=== PATIENT | female | born 1975 | race Caucasian/White ===

== ENCOUNTER → 2019-11-14 10:49 | Outpatient (BNVA) | payer MEDICARE, MEDICAID, SELFPAY | PROVIDERS: Family Provider Nurse Practitioner Family; PCP Registered Nurse; Visit Provider Nurse Practitioner Family | DX: B37.3 Candidiasis of vulva and vagina (principal); E11.9 Type 2 diabetes mellitus without complications; Z79.4 Long term (current) use of insulin; I10 Essential (primary) hypertension; Z72.0 Tobacco use | CPT/HCPCS: 83036 ==

== ENCOUNTER → 2020-02-26 14:07 | Outpatient (BNVA) | payer MEDICARE, MEDICAID, SELFPAY | PROVIDERS: Family Provider Nurse Practitioner Family; PCP Registered Nurse; Visit Provider Registered Nurse | DX: R30.0 Dysuria (principal); N76.0 Acute vaginitis; B35.3 Tinea pedis | CPT/HCPCS: 80053; 81000; 87077; 87086; 87186 ==

== ENCOUNTER → 2020-05-25 15:37 | Outpatient (BNVA) | payer MEDICARE, MEDICAID, SELFPAY | PROVIDERS: Family Provider Nurse Practitioner Family; PCP Registered Nurse; Visit Provider Registered Nurse | DX: E11.9 Type 2 diabetes mellitus without complications (principal); Z79.4 Long term (current) use of insulin; I10 Essential (primary) hypertension | CPT/HCPCS: 80053; 83036 ==

== ENCOUNTER → 2020-07-21 15:59 | Outpatient (BNVA) | payer MEDICARE, MEDICAID, SELFPAY | PROVIDERS: Family Provider Nurse Practitioner Family; PCP Registered Nurse; Visit Provider Registered Nurse | DX: B37.9 Candidiasis, unspecified (principal) | CPT/HCPCS: 81000 ==

== ENCOUNTER → 2020-12-03 10:13 | Outpatient (BNVA) | payer MEDICARE, MEDICAID, SELFPAY | PROVIDERS: Family Provider Nurse Practitioner Family; PCP Registered Nurse; Visit Provider Registered Nurse | DX: Z79.4 Long term (current) use of insulin; E78.5 Hyperlipidemia, unspecified; I10 Essential (primary) hypertension; E08.42 Diabetes mellitus due to underlying condition with diabetic polyneuropathy | CPT/HCPCS: 80053; 80061; 83036; 85025 ==

== ENCOUNTER → 2020-12-29 11:08 | Outpatient (BNVA) | payer MEDICARE, MEDICAID, SELFPAY | PROVIDERS: Family Provider Nurse Practitioner Family; PCP Registered Nurse; Visit Provider Registered Nurse | DX: J02.9 Acute pharyngitis, unspecified (principal) | CPT/HCPCS: 87880 ==

== ENCOUNTER → 2021-02-02 13:47 | Outpatient (BNVA) | payer MEDICARE, MEDICAID, SELFPAY | PROVIDERS: Family Provider Nurse Practitioner Family; PCP Registered Nurse; Visit Provider Registered Nurse | DX: N89.8 Other specified noninflammatory disorders of vagina (principal); B37.3 Candidiasis of vulva and vagina | CPT/HCPCS: 81000 ==

== ENCOUNTER → 2021-05-11 11:11 | Outpatient (BNVA) | payer MEDICARE, MEDICAID, SELFPAY | PROVIDERS: Family Provider Nurse Practitioner Family; PCP Registered Nurse; Visit Provider Registered Nurse | DX: Z79.4 Long term (current) use of insulin (principal); E08.42 Diabetes mellitus due to underlying condition with diabetic polyneuropathy; I10 Essential (primary) hypertension | CPT/HCPCS: 80053; 83036 ==

== ENCOUNTER 2022-07-17 21:07 | Emergency (ER) | payer MEDICAID, SELFPAY ==
[2022-07-17 21:09] VITALS: BP 120/81; PULSE 110; RESP 18; TEMP 36.8; O2SAT 99; BMI 30.2
--- NOTE | 2022-07-17 21:43 | CTR_ITS ---
PROCEDURE INFORMATION: Exam: CT Head Without Contrast Exam date and time: 07/17/2022 10:33 PM Age: 46 years old Clinical indication: Pain; Dizziness; Headache not specified; Additional info: Dizziness, headache TECHNIQUE: Imaging protocol: Computed tomography of the head without contrast. Radiation optimization: All CT scans at this facility use at least one of these dose optimization techniques: automated exposure control; mA and/or kV adjustment per patient size (includes targeted exams where dose is matched to clinical indication); or iterative reconstruction. COMPARISON: No relevant prior studies available. RADIATION DOSE METRICS: Total DLP (mGy-cm): 860.77 FINDINGS: Brain: Normal. No hemorrhage. Unremarkable white matter. No mass effect. Cerebral ventricles: No ventriculomegaly. Paranasal sinuses: Visualized sinuses are unremarkable. No fluid levels. Mastoid air cells: Visualized mastoid air cells are well aerated. Bones/joints: Unremarkable. No acute fracture. Soft tissues: Unremarkable. CT/CT head wo con* [id number] IMPRESSION: No acute intracranial abnormality.
[2022-07-17] MEDS: sodium chloride 0.9% 1,000 ML 999 ML IV (22:03)
--- NOTE | 2022-07-17 22:04 | ECG_ITS ---
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 Measurements Intervals [place] Rate: 117 P: 34 OR: 174 QRS: -87 QRSD: 92 T: 50 QT: 320 QTc: 448 Interpretive Statements SINUS TACHYCARDIA POSSIBLE ANTERIOR MYOCARDIAL INFARCTION , OF INDETERMINATE AGE [30 ms Q WAVE IN V3/V4, OR R < 0.2 mV IN V4] INFERIOR MYOCARDIAL INFARCTION , OF INDETERMINATE AGE [40+ ms Q WAVE AND/OR ST/T ABNORMALITY IN II/aVF] No previous ECG available for comparison Electronically Signed On 07-18-2022 18:11:01 CDT by Elkin Alford M.D. [id number]
--- NOTE | 2022-07-17 22:08 | W.ED.ALLEREA ---
HPI - Allergic Reaction General: Chief complaint: Allergic Reaction Stated complaint: Suger 305, dizzy, dry mouth Time Seen by Provider: 07/17/22 21:25 Source: patient History of Present Illness: HPI narrative: 46-year-old female who reports dizziness. She presents with significant dizziness, and headache, which she relates to increasing her dose of Lyrica couple of days ago. She has had essentially 3 doses, and has had increased dizziness with every dose. This is to the point that she is having trouble walking. She has no language problems, no focal weakness, no new numbness or paresthesias. She took 150 mg twice daily for 2 years without side effects, but this was increased to 300 mg twice daily. She also relates that she has dry mouth, that is significant. MD complaint: other Onset (ago): day(s) Associated symptoms: Reports dizziness; Deny abdominal pain, difficulty breathing, dysphagia, facial swelling, hoarseness, itching, lip swelling, tongue swelling or vomiting Severity: moderate Treatment prior to arrival: none Review of Systems Const: Denies: fever(s) Eyes: Denies: change in vision ENMT: Denies: throat pain or hoarseness Card: Denies: chest pain or palpitations Resp: Denies: dyspnea, productive cough or non-productive cough GI: Denies: abdominal pain, vomiting or dysphagia Neuro: Reports: headache(s), numbness in extremities (Chronic in hands from diabetic neuropathy) and dizziness; Denies: weakness in extremities All/Imm: Denies: tongue swelling or facial swelling PFSH ED PFSH: Medical History HTN (hypertension) Tobacco abuse disorder Type 2 diabetes mellitus without complication, with long-term current use of insulin Surgical History Hx of appendectomy Social History Smoking and tobacco status: never smoked Quit status (tobacco): considering quitting Physical Exam Const: COMMON NORMALS: no acute distress and alert GENERAL APPEARANCE: not ill appearing and not frail appearing HENMT: COMMON NORMALS: normocephalic, atraumatic and Normal external nose present HEAD & SCALP: normocephalic and atraumatic FACE & SINUS: normal facial exam and face symmetric NOSE: Normal external nose present Eye: COMMON NORMALS: Equal, round and reactive pupils present and EOMs intact bilaterally PUPIL: Yes Equal, round and reactive pupils present Neck/C-Spine: GENERAL: Yes trachea midline Resp: COMMON NORMALS: normal respiratory effort, No use of accessory muscles and clear to auscultation bilaterally AUSCULTATION: clear to auscultation bilaterally Cardio: COMMON NORMALS: regular rate and regular rhythm RATE: regular rate RHYTHM: regular rhythm GI: COMMON NORMALS: Normal to inspection, nondistended, normoactive bowel sounds present, Soft to palpation and non-tender PALPATION: Yes Soft to palpation Extremity: COMMON NORMALS: no pedal edema Neuro: LENI COMA SCALE: document GCS findings [place] coma scale eye opening: Spontaneous [place] coma scale verbal response: Orientated Leni coma scale motor response: Obey commands [place] coma scale total score: 15 COMMON NORMALS: CN's II-XII intact bilaterally SENSORIUM/ORIENTATION: Yes alert COORDINATION/BALANCE: [id number]-gw-[id number] test normal and eicn-iv-ozmj test normal SPEECH: speech normal SENSORY EXAM: Yes extremities (Grossly intact) MOTOR EXAM: Pronator motor function not present COORDINATION: isyhya-pk-knvj test normal and fcxz-gc-zgsf test normal Psych: COMMON NORMALS: mental status grossly normal Course Vital Signs: Vital signs: Vital Signs Temperature 98.3 F 07/17/22 21:09 Pulse Rate 88 07/17/22 23:51 Respiratory Rate 16 07/17/22 23:51 Blood Pressure 110/71 07/17/22 23:51 Pulse Oximetry 95 07/17/22 23:51 Oxygen Delivery Me thod 07/17/22 21:09 MDM - Allergic Reaction Medical Decision Making Head CT is negative. Blood sugar is down to 01/05/2003. She is prerenal azotemic, and is hydrated here. White blood cell count is 11.8. Hemoglobin is 12.6. Besides dehydration, no other cause for dizziness is noted. We will have her stop her pregabalin and resume her lower dose when her dizziness resolves. She is encouraged to drink plenty of fluids and watch her blood sugar. She has no signs of posterior circulation stroke on exam or CT. Lab Data : 07/17/22 22:03 07/17/22 22:[address] 07/17/22 21:43 IMPRESSION: No acute intracranial abnormality. Laboratory Results WBC 11.8 10^3/uL (4.0-10.0) H 07/17/22 22:03 RBC 6.64 10^6/uL (4.1-5.3) H 07/17/22 22:03 Hgb 12.6 g/dL (11.5-15.3) 07/17/22 22:03 Hct 41.6 % (37.0-47.0) 07/17/22 22: MCV 62.7 fl (81-99) L 07/17/22 22:03 MCH 19.0 pg (28.0-34.0) L 07/17/22: MCHC 30.3 g/dL (30.0-36.0) 07/17/22: RDW 16.1 % (12.1-15.1) H 07/17/22 22:03 Plt Count 320 10^3/cmm (130-400) 07/17/22 22: MPV 10.7 fL (7.4-10.4) H 07/17/22 22:03 Neut % (Auto) 55.0 % 07/17/22 22:03 Lymph % (Auto) 36.8 % 07/17/22 22:03 [place] % (Auto) 6.6 % 07/17/22 22: Eos % (Auto) 1.0 % 07/17/22 22: Baso % (Auto) 0.3 % 07/17/22 22: Neut # (Auto) 6.46 10^3/uL (1.8-7.7) 07/17/22: Lymph # (Auto) 4.3 10^3/uL (0.8-4.8) 07/17/22 22:03 [place] # (Auto) 0.8 10^3/uL (0.2-0.9) 07/17/22 22: Eos # (Auto) 0.1 10^3/uL (0.0-0.8) 07/17/22 22: Baso # (Auto) 0.0 10^3/uL (0.0-0.1) 07/17/22 22: Nucleated RBC % (auto) 0 % 07/17/22 22:03 Nucleated RBCs # 0.0 /100WBC 07/17/22 22:03 Sodium 133 mmol/L (136-145) L 07/17/22 22:03 Potassium 4.5 mmol/L (3.5-5.1) 07/17/22 22:03 Chloride 95 mmol/L (98-107) L 07/17/22 22:03 Carbon Dioxide 26 mmol/L (22-29) 07/17/22 22:03 Anion Gap 16.5 (5-19) 07/17/22 22:03 BUN 32 mg/dL (6-20) H 07/17/22 22:03 Creatinine 0.9 mg/dL (0.5-0.9) 07/17/22 22: GFR Calculation 66.8 mL/min (90-130) L 07/17/22 22:03 Glucose 203 mg/dL (65-115) H 07/17/22 22:03 Calculated Osmolality 289 mOsm/kg (285-295) 07/17/22 22:03 Lactate 2.0 mmol/L (0.5-2.2) 07/17/22 22: Calcium 10.0 mg/dL (8.5-10.5) 07/17/22 22:03 Total Bilirubin 0.2 mg/dL (0.15-1.2) 07/17/22 22:03 AST 10 U/L (0-32) 07/17/22 22:03 ALT 19 U/L (0-33) 07/17/22 22:03 Alkaline Phosphatase 127 U/L (35-105) H 07/17/22 22:03 Total Protein 7.2 g/dL (6.6-8.7) 07/17/22 22: Albumin 4.1 g/dL (3.5-5.2) 07/17/22 22: Globulin 3.1 g/dL (1.3-4.6) 07/17/22 22: Urine Color Yellow (Yellow) 07/17/22:45 Urine Appearance Clear (CLEAR) 07/17/22:45 Urine pH 6 (5-7) 07/17/22 22:45 Ur Specific [place] 1.020 (1.005-1.030) 07/17/22:45 Urine Protein Neg (Negative) 09/11/22 22:45 Urine Glucose (UA) 4+ (Normal) H 07/17/22 22:45 Urine Ketones Negative (Negative) 07/17/22 22:45 Urine Blood Neg (Negative) 07/17/22 22:45 Urine Nitrate Negative (Negative) 07/17/22 22:45 Urine Bilirubin Neg (Negative) 07/17/22 22:45 Urine Urobilinogen Neg mg/dL (Negative) 07/17/22 22:45 Ur Leukocyte Esterase Negative (Negative) 07/17/22 22:45 Discharge Plan Discharge Patient Disposition: Home Clinical Impression: Adverse drug effect, Acute dehydration Condition: Stable Prescriptions: No Action cephalexin 500 mg capsule 500 mg PO TID 7 Days Qty: 21 0RF lisinopril 20 mg tablet 20 mg PO DAILY Qty: 90 1RF pregabalin [Lyrica] 150 mg capsule 150 mg PO BID Qty: 60 2RF (DME) Advocate Test Strips Strip See Rx Instructions .Route Qty: 50 0RF Rx Instructions: TEST ONCE DAILY OneTouch Verio test strips Strip See Rx Instructions .ROUTE .COMPLEX Qty: 100 0RF Dose Instruction: USE 1 STRIP TO CHECK GLUCOSE ONCE DAILY Rx Instructions: USE 1 STRIP TO CHECK GLUCOSE ONCE DAILY metformin 1,000 mg tablet See Rx Instructions .ROUTE .COMPLEX Qty: 180 0RF Dose Instruction: Take 1 tablet by mouth twice daily for 90 days Rx Instructions: Take 1 tablet by mouth twice daily for 90 days Jardiance 25 mg tablet See Rx Instructions .ROUTE .COMPLEX Qty: 90 0RF Dose Instruction: TAKE 1 TABLET BY MOUTH EVERY MORNING Rx Instructions: TAKE 1 TABLET BY MOUTH EVERY MORNING Ozempic 0.25 mg or 0.5 mg(2 mg/1.5 mL) pen injector See Rx Instructions .ROUTE .COMPLEX Qty: 2 0RF Dose Instruction: INJECT 0.5 MG SUBCUTANEOUSLY ONCE A WEEK Rx Instructions: INJECT 0.5 MG SUBCUTANEOUSLY ONCE A WEEK Discharge Orders: Discharge ED (Routine); Ordered 07/17/22 Ordered By: Too Villasenor Referrals: Andrew Loomis MD [Physician] - 1-3 days Angelica Quinones FNP [Primary Care Provider] - Patient Instructions: Opioid Safety Activity Restrictions/Additional Instructions: Stop your pregabalin for 24 hours. Following this, if your dizziness is resolved, you may [id number] dose of 150 mg twice daily again. Drink plenty of water for the next 48 hours, as you were dehydrated. Return for fever greater than 100, vomiting liquids or medications, worsening dizziness, trouble with speech, weakness, other concerning symptoms. Coding Level of Care Code ED Speech Communication Professor for Keira Fwd Exam Comprehensive
[2022-07-17 22:19] LABS: Basophils % 0.3 %; Eosinophils # 0.1 10^3/uL (0.0-0.8); Hematocrit 41.6 % (37.0-47.0); Hemoglobin 12.6 g/dL (11.5-15.3); Lymphocytes # 4.3 10^3/uL (0.8-4.8); Lymphocytes % 36.8 %; Mean Corpuscular HGB Conc 30.3 g/dL (30.0-36.0); Mean Corpuscular Volume 62.7 fl (81-99); Mean Platelet Volume 10.7 fL (7.4-10.4); Monocytes # 0.8 10^3/uL (0.2-0.9); Monocytes % 6.6 %; Neutrophils # 6.46 10^3/uL (1.8-7.7); Nucleated Red Blood Cells % 0 %; Platelet Count 320 10^3/cmm (130-400); Red Blood Count 6.64 10^6/uL (4.1-5.3); Red Cell Distribution Width 16.1 % (12.1-15.1); White Blood Count 11.8 10^3/uL (4.0-10.0)
[2022-07-17 22:39] LABS: Alanine Aminotransferase 19 U/L (0-33); Albumin Level 4.1 g/dL (3.5-5.2); Alkaline Phosphatase 127 U/L (35-105); Anion Gap 16.5 (5-19); Aspartate Amino Transferase 10 U/L (0-32); Blood Urea Nitrogen 32 mg/dL (6-20); Carbon Dioxide 26 mmol/L (22-29); Chloride 95 mmol/L (98-107); Globulin 3.1 g/dL (1.3-4.6); Glomerular Filtration Rate 66.8 mL/min (90-130); Glucose 203 mg/dL (65-115); Osmolality Calculated 289 mOsm/kg (285-295); Potassium 4.5 mmol/L (3.5-5.1); Sodium 133 mmol/L (136-145); Total Bilirubin 0.2 mg/dL (0.15-1.2); Total Protein 7.2 g/dL (6.6-8.7)
[2022-07-17 22:56] LABS: Add Urine Microscopic? NO; Charge for UA Resulting for Rev
[2022-07-17 22:56] LABS: Slide Review Slide Review Perform
[2022-07-17 22:59] LABS: Urine Appearance Clear (CLEAR); Urine Color Yellow (Yellow)
[2022-07-17 23:00] LABS: Bilirubin Urine Neg (Negative); Blood Urine Neg (Negative); Glucose Urine UA 4+ (Normal); Ketones Urine Negative (Negative); Leukocyte Esterase Urine Negative (Negative); Nitrate Urine Negative (Negative); Protein Urine Neg (Negative); Urobilinogen Urine Neg (Negative); pH Urine 6 (5-7)
[2022-07-17 23:10] VITALS: BP 97/67; PULSE 102; RESP 17; O2SAT 94
[2022-07-17 23:51] VITALS: BP 110/71; PULSE 88; RESP 16; O2SAT 95
== END 2022-07-17 23:52 | disposition home or self-care (01) ==
PROVIDERS: Emergency Provider Emergency Medicine; PCP Registered Nurse
DX: E86.0 Dehydration (principal); T38.5X5A Adverse effect of other estrogens and progestogens, initial encounter
CPT/HCPCS: 70450; 80053; 81003; 83605; 85025; 93005; 96360; 99285; J7030

== ENCOUNTER 2022-12-04 01:24 | Emergency (ER) | payer MEDICARE, MEDICAID, SELFPAY ==
[2022-12-04 01:31] VITALS: BP 135/69; PULSE 86; RESP 16; TEMP 36.1; O2SAT 98; BMI 27.9
--- NOTE | 2022-12-04 01:49 | ED_ITS ---
HPI - Dental/Oral General: Chief complaint: Dental/Oral Stated complaint: toothache and right eye burning/itching Time Seen by Provider: 12/04/22 01:29 History of Present Illness: 47-year-old female comes in today with dental pain and irritation to the right eye. Patient denies getting anything in her eye but it feels like there is something. Patient also has poor dentition and increased pain. Patient has a history of diabetes and hypertension. Review of Systems Eyes: Reports: eye discomfort ENMT: Reports: dental pain PFSH ED PFSH: Medical History HTN (hypertension) Tobacco abuse disorder Type 2 diabetes mellitus without complication, with long-term current use of insulin Surgical History Hx of appendectomy Social History Smoking and tobacco status: never smoked Quit status (tobacco): considering quitting Physical Exam Const: COMMON NORMALS: alert HENMT: COMMON NORMALS: normocephalic HEAD & SCALP: normocephalic TEETH & GINGIVA: Yes poor dentition Eye: VISUAL ACUITY: Yes acuity normal EYELID: eyelid abnormality right upper eyelid erythema and swelling CONJUNCTIVA: Yes conjunctival abnormal positive right conjunctival injection Neck/C-Spine: COMMON NORMALS: full ROM Resp: COMMON NORMALS: normal respiratory effort Cardio: COMMON NORMALS: regular rate RATE: regular rate GI: COMMON NORMALS: Soft to palpation PALPATION: Yes Soft to palpation Back/Pelvis: COMMON NORMALS: thoracic and lumbar spine normal to inspection Extremity: COMMON NORMALS: no pedal edema Neuro: SENSORIUM/ORIENTATION: Yes alert Skin: COMMON NORMALS: turgor normal GENERAL SKIN EXAM: turgor normal Course Vital Signs: Vital signs: Vital Signs Temperature 97.0 F L 12/04/22 01:31 Pulse Rate 86 12/04/22 01:31 Respiratory Rate 16 12/04/22 01:31 Blood Pressure 135/69 12/04/22 01:31 Pulse Oximetry 98 12/04/22 01:31 Oxygen Delivery Me thod 12/04/22 01:31 MDM - Dental/Oral Medical Decision Making 47-year-old female comes in today for complaints of dental pain and eye irritation. On exam patient has some erythema to the right upper eyelid, no noticeable foreign body or abnormality to the conjunctiva. Respirations are even lungs are clear to auscultation. Abdomen soft nontender. No edema is noted in the extremity. Patient has very poor dentition with multiple caries and dental decay. Also significant erosion of the gingiva is noted. Differential diagnosis includes foreign body to the eye, conjunctivitis, corneal abrasion. Differential diagnosis of dental complaint includes dental abscess, dental caries, tooth ache. 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 Patient to follow-up with dentist for definitive care of of teeth. Patient reports understanding and agreed to plan Discharge Plan Discharge Patient Disposition: Home Clinical Impression: Toothache Corneal abrasion Qualifiers: Encounter type: initial encounter Laterality: right Qualified Code(s): S05.01XA - Injury of conjunctiva and corneal abrasion without foreign body, right eye, initial encounter Condition: Stable Prescriptions: New clindamycin HCl 300 mg capsule 300 mg PO BID 7 Days Qty: 14 0RF Discontinued cephalexin 500 mg capsule 500 mg PO TID 7 Days Qty: 21 0RF No Action lisinopril 20 mg tablet 20 mg PO DAILY Qty: 90 1RF pregabalin [Lyrica] 150 mg capsule 150 mg PO BID Qty: 60 2RF (DME) Advocate Test Strips Strip See Rx Instructions .Route Qty: 50 0RF Rx Instructions: TEST ONCE DAILY OneTouch Verio test strips Strip See Rx Instructions .ROUTE .COMPLEX Qty: 100 0RF Dose Instruction: USE 1 STRIP TO CHECK GLUCOSE ONCE DAILY Rx Instructions: USE 1 STRIP TO CHECK GLUCOSE ONCE DAILY metformin 1,000 mg tablet See Rx Instructions .ROUTE .COMPLEX Qty: 180 0RF Dose Instruction: Take 1 tablet by mouth twice daily for 90 days Rx Instructions: Take 1 tablet by mouth twice daily for 90 days Jardiance 25 mg tablet See Rx Instructions .ROUTE .COMPLEX Qty: 90 0RF Dose Instruction: TAKE 1 TABLET BY MOUTH EVERY MORNING Rx Instructions: TAKE 1 TABLET BY MOUTH EVERY MORNING Ozempic 0.25 mg or 0.5 mg(2 mg/1.5 mL) pen injector See Rx Instructions .ROUTE .COMPLEX Qty: 2 0RF Dose Instruction: INJECT 0.5 MG SUBCUTANEOUSLY ONCE A WEEK Rx Instructions: INJECT 0.5 MG SUBCUTANEOUSLY ONCE A WEEK Discharge Orders: Discharge ED (Routine); Ordered 12/04/22 Ordered By: Federico Burroughs Referrals: Angelica Quinones FNP [Primary Care Provider] - Discharge Diet: Usual diet Discharge Activity: Increase activity as tolerated Patient Instructions: Toothache (ED) Activity Restrictions/Additional Instructions: Drink plenty of water and fluids. Take antibiotic as directed. Use antibiotic eyedrop 2 drops to the affected eye 4 times a day while awake for the next 7 days. Follow-up with dentist for definitive care. Use acetaminophen or ibuprofen for pain. Return to ED for worsening symptoms or new concerns. Have the eye rechecked in 3 days at primary care office or eye out of school hours care worker. Coding Level of Care Code ED Street Superintendent for Keira Golden
[2022-12-04] MEDS: clindamycin 150 mg Capsule 300 MG PO (01:53)
[2022-12-04] MEDS: HYDROcodone-acetaminophen 5-325 mg Tablet 1 TAB PO (01:53)
[2022-12-04] MEDS: neomycin-poly-dex Op 5 mL Btl 2 DROP EYE-RIGHT (02:04)
== END 2022-12-04 02:08 | disposition home or self-care (01) ==
PROVIDERS: Emergency Provider Nurse Practitioner Family; PCP Registered Nurse
DX: K08.89 Other specified disorders of teeth and supporting structures (principal); S05.01XA Injury of conjunctiva and corneal abrasion without foreign body, right eye, initial encounter; Z79.84 Long term (current) use of oral hypoglycemic drugs; I10 Essential (primary) hypertension; E11.9 Type 2 diabetes mellitus without complications; X58.XXXA Exposure to other specified factors, initial encounter
CPT/HCPCS: 99283

== ENCOUNTER 2022-12-12 18:09 | Emergency (ER) | payer MEDICARE, MEDICAID, SELFPAY ==
[2022-12-12] VITALS (9 sets, daily range): BP systolic 89–104; BP diastolic 57–75; PULSE 108; RESP 16; TEMP 36.6; O2SAT 95–98; BMI 29.2
[2022-12-12 18:25] LABS: Glucose Point of Care 163 mg/dL (70-110)
--- NOTE | 2022-12-12 18:45 | W.ED.GENADLT ---
HPI - General Adult General: Chief complaint: General Medical Stated complaint: High blood sugar Time Seen by Provider: 12/12/22 18:38 Source: patient Mode of arrival: ambulatory Limitations: no limitations History of Present Illness: 47-year-old female with a history of diabetes and states that she has been feeling fatigued this week her blood sugars been running high states has been running over 300 was 314 today and she became concerned blood sugar here is 163 she had no vomiting no diarrhea denies any worsening proving factors. Associated symptoms: Deny chest pain, dyspnea, headache(s), nausea, rash or vomiting Review of Systems Const: Denies: fever(s), chills, body aches or change in appetite Eyes: Denies: blurry vision or eye discomfort ENMT: Denies: throat pain or dental pain Card: Denies: chest pain Resp: Denies: dyspnea GI: Denies: abdominal pain, nausea, vomiting or diarrhea : Denies: dysuria Musc: Denies: neck pain or back pain Skin/Breast: Denies: rash Neuro: Denies: headache(s) Psych: Denies: depression [place]/Lymph: Denies: easy bruising All/Imm: Denies: urticaria PFSH ED PFSH: Medical History HTN (hypertension) Tobacco abuse disorder Type 2 diabetes mellitus without complication, with long-term current use of insulin Surgical History Hx of appendectomy Social History Smoking and tobacco status: never smoked Quit status (tobacco): considering quitting Physical Exam Const: COMMON NORMALS: no acute distress, patient oriented x3 and healthy appearing HENMT: COMMON NORMALS: normocephalic and atraumatic HEAD & SCALP: normocephalic and atraumatic Eye: COMMON NORMALS: Equal, round and reactive pupils present and EOMs intact bilaterally PUPIL: Yes Equal, round and reactive pupils present Neck/C-Spine: COMMON NORMALS: full ROM and supple Chest: COMMONS NORMALS: normal inspection of the chest and normal palpation of entire chest wall Resp: COMMON NORMALS: normal respiratory effort, No retractions, No use of accessory muscles and clear to auscultation bilaterally AUSCULTATION: clear to auscultation bilaterally Cardio: COMMON NORMALS: regular rate, regular rhythm and No murmurs present (Cardio) RATE: regular rate RHYTHM: regular rhythm GI: COMMON NORMALS: Normal to inspection, nondistended, normoactive bowel sounds present, Soft to palpation, non-tender and no masses PALPATION: Yes Soft to palpation Extremity: COMMON NORMALS: normal to inspection and full ROM Neuro: COMMON NORMALS: patient oriented x3, moves all extremities and no focal motor deficits Psych: COMMON NORMALS: mental status grossly normal, Normal thought process present and cooperative THOUGHT PROCESS: Normal thought process present Skin: COMMON NORMALS: no rashes or lesions noted and no wounds GENERAL SKIN EXAM: no rashes or lesions noted Course Vital Signs: Vital signs: Vital Signs Temperature 97.9 F 12/12/22 18:18 Pulse Rate 108 H 12/12/22 20:11 Respiratory Rate 16 12/12/22 18:18 Blood Pressure 104/75 12/12/22 20:11 Pulse Oximetry 98 12/12/22 20:11 Oxygen Delivery Me thod 12/12/22 18:18 MDM - General Adult Medical Decision Making Patient presents here with high glucose at home her blood sugar here is improved her blood work is normal her blood pressure at 89/58 chart is incorrect its currently at 102 she is stable for discharge she is to follow-up with PCP and return if worsening. Lab Data 12/12/22 18:55 12/12/22 18:55 Laboratory Results WBC 11.6 10^3/uL (4.0-10.0) H 12/12/22 18:55 RBC 6.42 10^6/uL (4.1-5.3) H 12/12/22 18:55 Hgb 12.2 g/dL (11.5-15.3) 12/12/22 18:55 Hct 40.3 % (37.0-47.0) 12/12/22 18:55 MCV 62.8 fl (81-99) L 12/12/22 18:55 MCH 19.0 pg (28.0-34.0) L 12/12/22 18:55 MCHC 30.3 g/dL (30.0-36.0) 12/12/22 18:55 RDW 18.6 % (12.1-15.1) H 12/12/22 18:55 Plt Count 418 10^3/cmm (130-400) H 12/12/22 18:55 MPV 10.8 fL (7.4-10.4) H 12/12/22 18:55 Neut % (Auto) 65.4 % 12/12/22 18:55 Lymph % (Auto) 27.8 % 12/12/22 18:55 [place] % (Auto) 5.6 % 12/12/22 18:55 Eos % (Auto) 0.6 % 12/12/22 18:55 Baso % (Auto) 0.3 % 12/12/22 18:55 Neut # (Auto) 7.57 10^3/uL (1.8-7.7) 12/12/22 18:55 Lymph # (Auto) 3.2 10^3/uL (0.8-4.8) 12/12/22 18:55 [place] # (Auto) 0.7 10^3/uL (0.2-0.9) 12/12/22 18:55 Eos # (Auto) 0.1 10^3/uL (0.0-0.8) 12/12/22 18:55 Baso # (Auto) 0.0 10^3/uL (0.0-0.1) 12/12/22 18:55 Nucleated RBC % (auto) 0.2 % 12/12/22 18:55 Nucleated RBCs # 0.0 /100WBC 12/12/22 18:55 Sodium 134 mmol/L (136-145) L 12/12/22 18:55 Potassium 3.9 mmol/L (3.5-5.1) 12/12/22 18:55 Chloride 96 mmol/L (98-107) L 12/12/22 18:55 Carbon Dioxide 24 mmol/L (22-29) 12/12/22 18:55 Anion Gap 17.9 (5-19) 12/12/22 18:55 BUN 31 mg/dL (6-20) H 12/12/22 18:55 Creatinine 1.6 mg/dL (0.5-0.9) H 12/12/22 18:55 GFR Calculation 34.3 mL/min (90-130) L 12/12/22 18:55 Glucose 165 mg/dL (65-115) H 12/12/22 18:55 POC Glucose 163 mg/dL (70-110) H 12/12/22 18:22 Calculated Osmolality 288 mOsm/kg (285-295) 12/12/22 18:55 Calcium 9.9 mg/dL (8.5-10.5) 12/12/22 18:55 Total Bilirubin 0.4 mg/dL (0.15-1.2) 12/12/22 18:55 AST 10 U/L (0-32) 12/12/22 18:55 ALT 17 U/L (0-33) 12/12/22 18:55 Alkaline Phosphatase 88 U/L (35-105) 12/12/22 18:55 Total Protein 7.4 g/dL (6.6-8.7) 12/12/22 18:55 Albumin 4.4 g/dL (3.5-5.2) 12/12/22 18:55 Globulin 3.0 g/dL (1.3-4.6) 12/12/22 18:55 Lipase 59 U/L (13-60) 12/12/22 18:55 Discharge Plan Discharge Patient Disposition: Home Clinical Impression: Hyperglycemia Condition: Stable Prescriptions: No Action lisinopril 20 mg tablet 20 mg PO DAILY Qty: 90 1RF pregabalin [Lyrica] 150 mg capsule 150 mg PO BID Qty: 60 2RF (DME) [facility]ocate Test Strips Strip See Rx Instructions .Route Qty: 50 0RF Rx Instructions: TEST ONCE DAILY OneTouch Verio test strips Strip See Rx Instructions .ROUTE .COMPLEX Qty: 100 0RF Dose Instruction: USE 1 STRIP TO CHECK GLUCOSE ONCE DAILY Rx Instructions: USE 1 STRIP TO CHECK GLUCOSE ONCE DAILY metformin 1,000 mg tablet See Rx Instructions .ROUTE .COMPLEX Qty: 180 0RF Dose Instruction: Take 1 tablet by mouth twice daily for 90 days Rx Instructions: Take 1 tablet by mouth twice daily for 90 days Jardiance 25 mg tablet See Rx Instructions .ROUTE .COMPLEX Qty: 90 0RF Dose Instruction: TAKE 1 TABLET BY MOUTH EVERY MORNING Rx Instructions: TAKE 1 TABLET BY MOUTH EVERY MORNING Ozempic 0.25 mg or 0.5 mg(2 mg/1.5 mL) pen injector See Rx Instructions .ROUTE .COMPLEX Qty: 2 0RF Dose Instruction: INJECT 0.5 MG SUBCUTANEOUSLY ONCE A WEEK Rx Instructions: INJECT 0.5 MG SUBCUTANEOUSLY ONCE A WEEK Discharge Orders: Discharge ED (Routine); Ordered 12/12/22 Ordered By: Nita Shelby Referrals: Andrew Loomis MD [Primary Care Provider] - Discharge Diet: Advance as tolerated Discharge Activity: Resume usual activity Patient Instructions: Diabetic Hyperglycemia (ED) Coding Level of Care Code ED Laborer [employer] Assembly for Keira Golden
[2022-12-12] MEDS: sodium chloride 0.9% 1,000 ML 999 ML IV (19:03)
[2022-12-12 19:14] LABS: Basophils % 0.3 %; Eosinophils # 0.1 10^3/uL (0.0-0.8); Eosinophils % 0.6 %; Hematocrit 40.3 % (37.0-47.0); Hemoglobin 12.2 g/dL (11.5-15.3); Lymphocytes # 3.2 10^3/uL (0.8-4.8); Lymphocytes % 27.8 %; Mean Corpuscular HGB Conc 30.3 g/dL (30.0-36.0); Mean Corpuscular Volume 62.8 fl (81-99); Mean Platelet Volume 10.8 fL (7.4-10.4); Monocytes # 0.7 10^3/uL (0.2-0.9); Monocytes % 5.6 %; Neutrophils # 7.57 10^3/uL (1.8-7.7); Neutrophils % 65.4 %; Nucleated Red Blood Cells % 0.2 %; Platelet Count 418 10^3/cmm (130-400); Red Blood Count 6.42 10^6/uL (4.1-5.3); Red Cell Distribution Width 18.6 % (12.1-15.1); White Blood Count 11.6 10^3/uL (4.0-10.0)
[2022-12-12 19:31] LABS: Alanine Aminotransferase 17 U/L (0-33); Albumin Level 4.4 g/dL (3.5-5.2); Alkaline Phosphatase 88 U/L (35-105); Anion Gap 17.9 (5-19); Aspartate Amino Transferase 10 U/L (0-32); Blood Urea Nitrogen 31 mg/dL (6-20); Calcium 9.9 mg/dL (8.5-10.5); Carbon Dioxide 24 mmol/L (22-29); Chloride 96 mmol/L (98-107); Glomerular Filtration Rate 34.3 mL/min (90-130); Glucose 165 mg/dL (65-115); Lipase 59 U/L (13-60); Osmolality Calculated 288 mOsm/kg (285-295); Potassium 3.9 mmol/L (3.5-5.1); Sodium 134 mmol/L (136-145); Total Bilirubin 0.4 mg/dL (0.15-1.2); Total Protein 7.4 g/dL (6.6-8.7)
== END 2022-12-12 20:13 | disposition home or self-care (01) ==
PROVIDERS: Emergency Provider Emergency Medicine; PCP Family Medicine
DX: E11.65 Type 2 diabetes mellitus with hyperglycemia (principal); Z79.84 Long term (current) use of oral hypoglycemic drugs; I10 Essential (primary) hypertension
CPT/HCPCS: 36416; 80053; 82962; 83690; 85025; 96360; 99284; J7030

== ENCOUNTER 2023-05-27 19:53 | Emergency (ER) | payer MEDICARE, MEDICAID, SELFPAY ==
[2023-05-27 20:05] VITALS: BP 123/77; PULSE 89; RESP 16; TEMP 36.7; O2SAT 98; BMI 26.4
--- NOTE | 2023-05-27 20:11 | ED_ITS ---
HPI - Skin/Abscess/Foreign Bdy General: Chief complaint: Skin/Abscess/Foreign Body Stated complaint: abd pain Time Seen by Provider: 05/27/23 20:04 Source: patient Mode of arrival: ambulatory Limitations: no limitations History of Present Illness: 47-year-old female states that she noticed some redness to her umbilicus just prior to arrival she denies it being pruritic denies any pain denies any fever denies any drainage Associated symptoms: Deny chills, fever(s), nausea or vomiting Review of Systems Const: Denies: fever(s) or chills ENMT: Denies: throat pain Card: Denies: chest pain Resp: Denies: dyspnea GI: Denies: abdominal pain, nausea or vomiting Musc: Denies: neck pain or back pain Skin/Breast: Reports: rash Neuro: Denies: headache(s) PFSH ED PFSH: Medical History HTN (hypertension) Tobacco abuse disorder Type 2 diabetes mellitus without complication, with long-term current use of insulin Surgical History Hx of appendectomy Social History Smoking and tobacco status: never smoked Quit status (tobacco): considering quitting Physical Exam Const: COMMON NORMALS: no acute distress and patient oriented x3 HENMT: COMMON NORMALS: normocephalic and atraumatic HEAD & SCALP: normocephalic and atraumatic Eye: COMMON NORMALS: conjunctivae normal CONJUNCTIVA: Yes conjunctivae normal Chest: COMMONS NORMALS: normal inspection of the chest Resp: COMMON NORMALS: normal respiratory effort GI: OTHER: Tenia corporis to umbilicus no tenderness no hernia Extremity: COMMON NORMALS: normal to inspection Neuro: COMMON NORMALS: patient oriented x3 Psych: COMMON NORMALS: mental status grossly normal Course Vital Signs: Vital signs: Vital Signs Temperature 98.0 F 05/27/23 20:05 Pulse Rate 89 05/27/23 20:05 Respiratory Rate 16 05/27/23 20:05 Blood Pressure 123/77 05/27/23 20:05 Pulse Oximetry 98 05/27/23 20:05 Oxygen Delivery Me thod Room Air, Nasal C annula 05/27/23 20:05 MDM - Skin/Abscess/Foreign Bdy Medicial Decision Making Patient presents for tinea corporis to her umbilicus we will prescribe her clotrimazole she is well-appearing here she is stable for discharge Medical Records I reviewed the patient's medical records. Discharge Plan Discharge Patient Disposition: Home Clinical Impression: Tinea corporis Condition: Stable Prescriptions: New clotrimazole 1 % ointment 1 applic topical BID 14 Days Qty: 56.7 0RF No Action hydrocodone-acetaminophen 5-325 mg tablet 1 tab PO Q6H PRN (Reason: pain) 7 Days Qty: 28 0RF lisinopril 20 mg tablet 20 mg PO DAILY Qty: 90 1RF pregabalin [Lyrica] 150 mg capsule 150 mg PO BID Qty: 60 2RF (DME) Advocate Test Strips Strip See Rx Instructions .Route Qty: 50 0RF Rx Instructions: TEST ONCE DAILY OneTouch Verio test strips Strip See Rx Instructions .ROUTE .COMPLEX Qty: 100 0RF Dose Instruction: USE 1 STRIP TO CHECK GLUCOSE ONCE DAILY Rx Instructions: USE 1 STRIP TO CHECK GLUCOSE ONCE DAILY metformin 1,000 mg tablet See Rx Instructions .ROUTE .COMPLEX Qty: 180 0RF Dose Instruction: Take 1 tablet by mouth twice daily for 90 days Rx Instructions: Take 1 tablet by mouth twice daily for 90 days Jardiance 25 mg tablet See Rx Instructions .ROUTE .COMPLEX Qty: 90 0RF Dose Instruction: TAKE 1 TABLET BY MOUTH EVERY MORNING Rx Instructions: TAKE 1 TABLET BY MOUTH EVERY MORNING Ozempic 0.25 mg or 0.5 mg(2 mg/1.5 mL) pen injector See Rx Instructions .ROUTE .COMPLEX Qty: 2 0RF Dose Instruction: INJECT 0.5 MG SUBCUTANEOUSLY ONCE A WEEK Rx Instructions: INJECT 0.5 MG SUBCUTANEOUSLY ONCE A WEEK Discharge Orders: Discharge ED (Routine); Ordered 05/27/23 Ordered By: Nita Shelby Referrals: Andrew Loomis MD [Primary Care Provider] - 1-3 days Discharge Diet: Advance as tolerated Discharge Activity: Resume usual activity Patient Instructions: Tinea Corporis (ED) Coding Level of Care Code ED Dietary Director for Keira Golden
== END 2023-05-27 20:30 | disposition home or self-care (01) ==
PROVIDERS: Emergency Provider Emergency Medicine; PCP Family Medicine
DX: B35.4 Tinea corporis (principal); Z79.84 Long term (current) use of oral hypoglycemic drugs; I10 Essential (primary) hypertension; E11.9 Type 2 diabetes mellitus without complications
CPT/HCPCS: 99283

== ENCOUNTER 2024-08-12 19:57 | Emergency (ER) | payer MEDICAID, SELFPAY ==
[2024-08-12] VITALS (7 sets, daily range): BP systolic 96–128; BP diastolic 66–88; PULSE 101–145; RESP 14–18; TEMP 37.2; O2SAT 92–97; BMI 26.6
[2024-08-12 20:35] LABS: Basophils % 0.3 %; Eosinophils % 0.1 %; Hematocrit 44.6 % (36-47); Lymphocytes # 1.1 10^3/uL (0.8-4.8); Lymphocytes % 12.4 %; Mean Corpuscular Hemoglobin 18.6 pg (27-33); Mean Corpuscular Volume 61.9 fl (85-98); Mean Platelet Volume 9.9 fL (7.4-10.4); Monocytes # 0.4 10^3/uL (0.2-0.9); Neutrophils # 7.23 10^3/uL (1.8-7.7); Neutrophils % 81.9 %; Nucleated Red Blood Cells % 0 %; Platelet Count 308 10^3/cmm (157-399); Red Cell Distribution Width 17.8 % (12.1-15.1); White Blood Count 8.84 10^3/uL (3.29-11.43)
[2024-08-12 20:52] LABS: Slide Review Slide Review Perform
[2024-08-12 20:55] LABS: Lactic Sepsis W/Reflex 2.6 mmol/L (0.5-2.2)
[2024-08-12 20:56] LABS: Alanine Aminotransferase 40 U/L (0-33); Albumin Level 4.3 g/dL (3.5-5.2); Alkaline Phosphatase 122 U/L (35-105); Anion Gap 15.6 (5-19); Aspartate Amino Transferase 18 U/L (0-32); Blood Urea Nitrogen 15 mg/dL (6-20); C Reactive Protein 12.7 mg/L (0.0-4.9); Calcium 9.8 mg/dL (8.5-10.5); Carbon Dioxide 22 mmol/L (22-29); Chloride 98 mmol/L (98-107); Creatinine Clr Calc Pharmacy 92.5025; Globulin 3.5 g/dL (1.3-4.6); Glomerular Filtration Rate 88.6 mL/min (90-130); Glucose 235 mg/dL (65-115); Osmolality Calculated 280 mOsm/kg (285-295); Potassium 4.6 mmol/L (3.5-5.1); Sodium 131 mmol/L (136-145); Total Bilirubin 0.6 mg/dL (0.15-1.2); Total Protein 7.8 g/dL (6.6-8.7)
--- NOTE | 2024-08-12 21:14 | ECG_ITS ---
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 Measurements Intervals Felicity Rate: 129 P: 56 ME: 158 QRS: 252 QRSD: 80 T: 66 QT: 308 QTc: 453 Interpretive Statements SINUS TACHYCARDIA PATTERN CONSISTENT WITH PULMONARY DISEASE RIGHT VENTRICULAR HYPERTROPHY [SOME/ALL OF: PROMINENT R IN V1, LATE TRANSITION, RAD, YUAN, SSS] Compared to ECG 07/17/2022 22:04:41 Atrial abnormality now present Right ventricular hypertrophy now present Myocardial infarct finding no longer present Electronically Signed On 08-13-2024 01:25:58 CDT by Nikita Torres M.D. [id number]
--- NOTE | 2024-08-12 21:30 | ED_ITS ---
HPI - Abdominal Pain 2 General: Chief Complaint: Abdominal Pain Stated Complaint: Aches,Pain Time Seen by Provider: 08/12/24 21:09 History of Present Illness: Patient presents to the ER with a she has not not feeling well and been throwing up for the last couple days. She been sleeping a lot patient is a diabetic who takes pills not insulin. States her blood sugar has been up to 300. She says she has not been able to poop for about 2 days and has not produced a whole lot of urine however she is not able to keep anything down to be on the verge to be getting dehydrated. Related Data Previous Rx's Medication Instructions Recorded lisinopril 20 mg tablet 20 mg PO DAILY #90 tabs 06/14/21 pregabalin 150 mg capsule (Lyrica) 150 mg PO BID #60 caps 06/14/21 blood sugar diagnostic (Advocate #50 ea 06/21/21 Test Strips) blood sugar diagnostic (OneTouch See Rx Instructions .Route 08/04/21 Verio test strips) .COMPLEX #100 ea metformin 1,000 mg tablet See Rx Instructions .Route 09/23/21 .COMPLEX #180 tabs empagliflozin 25 mg tablet See Rx Instructions .Route 11/12/21 (Jardiance) .COMPLEX #90 tabs semaglutide 0.25 mg or 0.5 mg (2 See Rx Instructions .Route 11/12/21 mg/1.5 mL) subcutaneous pen .COMPLEX #2 mL injector (Ozempic) hydrocodone 5 mg-acetaminophen 325 1 tab PO Q6H PRN pain 7 days #28 02/22/ mg tablet tabs ondansetron HCl 4 mg tablet 4 mg PO Q8H PRN nausea and 08/13/24 vomiting #14 tabs Allergies Allergy/AdvReac Type Severity Reaction Status Date / Time aspirin Allergy Mild unknown Verified 08/12/24 20:05 penicillin V Allergy Mild unknown Verified 08/12/24 20:05 Review of Systems 2 General: Reports: 10 or more systems reviewed and unremarkable except in HPI and below PFSH ED 2 PFSH: Medical History Tobacco abuse disorder HTN (hypertension) Type 2 diabetes mellitus without complication, with long-term current use of insulin Surgical History Hx of appendectomy Social History Smoking and tobacco/nicotine status: never used tobacco/nicotine Quit status (tobacco/nicotine): considering quitting Physical Exam 2 Const: COMMON NORMALS: no acute distress, average body habitus, patient oriented x3, no limitations, healthy appearing, alert and well nourished HENMT: COMMON NORMALS: normocephalic, atraumatic, hearing grossly normal bilaterally, external ears normal, Normal external nose present and moist oral mucous membranes HEAD & SCALP: normocephalic and atraumatic NOSE: Normal external nose present EXTERNAL EAR: Yes external ears normal Eye: COMMON NORMALS: Equal, round and reactive pupils present, EOMs intact bilaterally, conjunctivae normal and no scleral icterus CONJUNCTIVA: Yes conjunctivae normal PUPIL: Yes Equal, round and reactive pupils present Neck/C-Spine: COMMON NORMALS: full ROM, no lymphadenopathy, supple, no meningeal signs, no JVD and Thyroid normal THYROID: Thyroid normal Chest: COMMONS NORMALS: normal inspection of the chest and normal palpation of entire chest wall Resp: COMMON NORMALS: normal respiratory effort, No retractions, No use of accessory muscles and clear to auscultation bilaterally AUSCULTATION: clear to auscultation bilaterally Cardio: COMMON NORMALS: no JVD, regular rhythm, S1 normal heart sound present, S2 normal heart sound present, No gallops present (Cardio), No clicks present (Cardio), No murmurs present (Cardio) and No rub (Cardio); negative for regular rate (Tachycardic) RATE: abnormal rate (Tachycardic) RHYTHM: regular rhythm HEART SOUNDS: S1 normal heart sound present and S2 normal heart sound present GI: COMMON NORMALS: Normal to inspection, nondistended, normoactive bowel sounds present, Soft to palpation, No hepatosplenomegaly present and no masses; negative for non-tender (Tender to palpate right upper quadrant) PALPATION: Y es Soft to palpation and Yes No hepatosplenomegaly present Neuro: COMMON NORMALS: patient oriented x3 SENSORIUM/ORIENTATION: Yes alert MENINGEAL SIGNS: Yes no meningeal signs Course 2 Vital Signs: Vital signs: Vital Signs Temperature 98.9 F 08/12/24 20:00 Pulse Rate 105 H 10/08/24 00:25 Respiratory Rate 16 08/13/24 00:25 Blood Pressure 107/89 08/13/24 00:25 Pulse Oximetry 95 08/13/24 00:25 Oxygen Delivery Me thod Room Air 08/12/24 23:30 MDM - Abdominal Pain Medical Decision Making Homework revealed normal white count, hemoglobin hematocrit and platelet count, metabolic panel showed sodium 131, ALT 40 alk phos 122, troponin of 13 and 14.71 for delta 1.71 CRP of 12.7, CT scan abdomen pelvis showed prominent fluid in the stomach correlate for gastroenteritis, hepatic steatosis, patient was given fluid bolus and says she was feeling much better. Patient will be discharged home to follow-up with her PCP. Differential Diagnosis Likely abdominal pain Medical Records I reviewed the patient's medical records. Lab Data I reviewed the patient's lab results. 08/12/24 20:28 08/12/24 20:28 Labs/Radiology: Radiology Impressions Abdomen/Pelvis CT 08/12/24 23:03 IMPRESSION: 1. Prominent fluid in the stomach and small bowel, please correlate for a gastroenteritis. 2. Hepatic steatosis. 3. Right adrenal 27 mm indeterminate nodule along with a left adrenal 20 mm indeterminate nodule, dedicated nonemergent adrenal imaging could further characterize this. 4. Small hiatal hernia. Laboratory Results WBC 8.84 10^3/uL (3.29-11.43) 08/12/24 20: RBC 7.20 10^6/uL (3.85-5.65) H 08/12/24 20: Hgb 13.40 g/dL (11.27-16.99) 08/12/24 20: Hct 44.6 % (36-47) 08/12/24 20: MCV 61.9 fl (85-98) L 08/12/24 20: MCH 18.6 pg (27-33) L 08/12/24 20: MCHC 30.0 g/dL (30-55) 08/12/24 20: RDW 17.8 % (12.1-15.1) H 08/12/24 20: Plt Count 308 10^3/cmm (157-399) 08/12/24 20: MPV 9.9 fL (7.4-10.4) 08/12/24 20: Neut % (Auto) 81.9 % 08/12/24 20: Lymph % (Auto) 12.4 % 08/12/24 20: Lea % (Auto) 5.0 % 08/12/24 20: Eos % (Auto) 0.1 % 08/12/24 20: Baso % (Auto) 0.3 % 08/12/24: Neut # (Auto) 7.23 10^3/uL (1.8-7.7) 08/12/24: Lymph # (Auto) 1.1 10^3/uL (0.8-4.8) 08/12/24 20: Lea # (Auto) 0.4 10^3/uL (0.2-0.9) 08/12/24: Eos # (Auto) 0.0 10^3/uL (0.0-0.8) 08/12/24: Baso # (Auto) 0.0 10^3/uL (0.0-0.1) 08/12/24: Nucleated RBC % (auto) 0 % 08/12/24: Nucleated RBCs # 0.0 /100WBC 08/12/24 20: Sodium 131 mmol/L (136-145) L 08/12/24 20: Potassium 4.6 mmol/L (3.5-5.1) 08/12/24 20: Chloride 98 mmol/L (98-107) 08/12/24: Carbon Dioxide 22 mmol/L (22-29) 08/12/24: Anion Gap 15.6 (5-19) 08/12/24 20: BUN 15 mg/dL (6-20) 08/12/24 20: Creatinine 0.7 mg/dL (0.5-0.9) 08/12/24 20: GFR Calculation 88.6 mL/min (90-130) L 08/12/24: Glucose 235 mg/dL (65-115) H 08/12/24 20: Calculated Osmolality 280 mOsm/kg (285-295) L 08/12/24 20: Lactic Acid 2.6 mmol/L (0.5-2.2) H 08/12/24: Lactic Acid (Sepsis) 1.7 mmol/L (0.5-2.2) 08/12/24 23:38 Calcium 9.8 mg/dL (8.5-10.5) 08/12/24 20:28 Magnesium 1.9 mg/dL (1.7-2.3) 08/12/24 20:28 Total Bilirubin 0.6 mg/dL (0.15-1.2) 08/12/24 20: AST 18 U/L (0-32) 08/12/24 20:28 ALT 40 U/L (0-33) H 08/12/24 20:28 Alkaline Phosphatase 122 U/L (35-105) H 08/12/24 20:28 Troponin T Baseline 13 ng/L (0-10) H 08/12/24 20: Troponin T 120 Minute 14.71 ng/L (0-10) H 08/12/24 22:23 Delta Troponin T 1.71 ABS# (0-10) 08/12/24 22:23 C-Reactive Protein 12.7 mg/L (0.0-4.9) H 08/12/24 20:28 Total Protein 7.8 g/dL (6.6-8.7) 08/12/24 20:28 Albumin 4.3 g/dL (3.5-5.2) 08/12/24 20: Globulin 3.5 g/dL (1.3-4.6) 08/12/24 20: Lipase 58 U/L (13-60) 08/12/24 20:28 Urine Color Yellow (Yellow) 08/12/24 22:52 Urine Appearance Clear (CLEAR) 08/12/24 22:52 Urine pH 6.5 (5-7) 08/12/24 22:52 Ur Specific [place] 1.023 (1.005-1.030) 08/12/24 22:52 Urine Protein Negative (Negative) 08/12/24 22:52 Urine Glucose (UA) 3+ (Normal) H 08/12/24 22:52 Urine Ketones Negative (Negative) 08/12/24 22:52 Urine Blood Negative (Negative) 08/12/24 22:52 Urine Nitrate Negative (Negative) 08/12/24 22:52 Urine Bilirubin Negative (Negative) 08/12/24 22:52 Urine Urobilinogen 1.0 mg/dL (Negative) 08/12/24 22:52 Ur Leukocyte Esterase Negative (Negative) 08/12/24 22:52 Urine RBC 0-2 /hpf (0-2) 08/12/24 22:52 Urine WBC 0-5 /hpf (0-5) 08/12/24 22:52 Ur Squamous Epith Cells 0-5 /hpf (0-5) 08/12/24 22:52 Amorphous Sediment Not Reportable 08/12/24 22:52 Urine Bacteria None seen /hpf (NONE) 08/12/24 22:52 Hyaline Casts 0-4 /lpf H 08/12/24 22:52 All radiology interpretation(s) finalized by discharge Discharge Plan Discharge Patient Disposition: Home Clinical Impression: Gastroenteritis Condition: Stable Prescriptions: New ondansetron HCl 4 mg tablet 4 mg PO Q8H PRN (Reason: nausea and vomiting) Qty: 14 0RF No Action hydrocodone-acetaminophen 5-325 mg tablet 1 tab PO Q6H PRN (Reason: pain) 7 Days Qty: 28 0RF lisinopril 20 mg tablet 20 mg PO DAILY Qty: 90 1RF pregabalin [Lyrica] 150 mg capsule 150 mg PO BID Qty: 60 2RF (DME) Advocate Test Strips Strip See Rx Instructions .Route Qty: 50 0RF Rx Instructions: TEST ONCE DAILY OneTouch Verio test strips Strip See Rx Instructions .ROUTE .COMPLEX Qty: 100 0RF Dose Instruction: USE 1 STRIP TO CHECK GLUCOSE ONCE DAILY Rx Instructions: USE 1 STRIP TO CHECK GLUCOSE ONCE DAILY metformin 1,000 mg tablet See Rx Instructions .ROUTE .COMPLEX Qty: 180 0RF Dose Instruction: Take 1 tablet by mouth twice daily for 90 days Rx Instructions: Take 1 tablet by mouth twice daily for 90 days Jardiance 25 mg tablet See Rx Instructions .ROUTE .COMPLEX Qty: 90 0RF Dose Instruction: TAKE 1 TABLET BY MOUTH EVERY MORNING Rx Instructions: TAKE 1 TABLET BY MOUTH EVERY MORNING Ozempic 0.25 mg or 0.5 mg(2 mg/1.5 mL) pen injector See Rx Instructions .ROUTE .COMPLEX Qty: 2 0RF Dose Instruction: INJECT 0.5 MG SUBCUTANEOUSLY ONCE A WEEK Rx Instructions: INJECT 0.5 MG SUBCUTANEOUSLY ONCE A WEEK Discharge Orders: Discharge ED (Routine); Ordered 08/13/24 Ordered By: Mayank Max Referrals: Andrew Loomis MD [Primary Care Provider] - 1 week Patient Instructions: Gastroenteritis (DC) Activity Restrictions/Additional Instructions: A prescription of Zofran was called to your pharmacy. This may help with your nausea and vomiting. Please take it as directed. Please follow-up with your family practice physician within next 7 days for further evaluation and treatment. Coding Level of Care Code ED Popcorn Machine Operator for Keira Golden
[2024-08-12 21:32] LABS: Troponin(5th) Baseline 13 ng/L (0-10)
[2024-08-12 21:33] LABS: Lipase 58 U/L (13-60); Magnesium 1.9 mg/dL (1.7-2.3)
[2024-08-12 22:21] LABS: Reflex Lactate Order REFLEX LACTIC ORDERD
[2024-08-12 22:49] LABS: Troponin 5 2HR 14.71 ng/L (0-10); Troponin 5 2HR Delta 1.71 ABS# (0-10)
--- NOTE | 2024-08-12 23:03 | CTR_ITS ---
PROCEDURE INFORMATION: Exam: CT Abdomen And Pelvis With Contrast Exam date and time: 08/12/2024 11:11 PM Age: 48 years old Clinical indication: Nausea and vomiting; Prior surgery; Surgery date: 6+ months; Surgery type: Appy; Additional info: Ruq abd pain, n/v TECHNIQUE: Imaging protocol: Computed tomography of the abdomen and pelvis with contrast. Radiation optimization: All CT scans at this facility use at least one of these dose optimization techniques: automated exposure control; mA and/or kV adjustment per patient size (includes targeted exams where dose is matched to clinical indication); or iterative reconstruction. Contrast material: OMNI 350; Contrast volume: 100 ml; Contrast route: INTRAVENOUS (IV); COMPARISON: No relevant prior studies available. RADIATION DOSE METRICS: Total DLP (mGy-cm): 798.46 FINDINGS: Liver: Hepatic steatosis. Gallbladder and biliary ducts: Normal. No calcified stones. No ductal dilation. Pancreas: Normal. No ductal dilation. Spleen: Normal. No splenomegaly. Adrenal glands: Right adrenal 27 mm indeterminate nodule along with a left adrenal 20 mm indeterminate nodule, dedicated nonemergent adrenal imaging could further characterize this. Kidneys and ureters: Normal. No hydronephrosis. Stomach and bowel: Prominent fluid in the stomach and small bowel, please correlate for a gastroenteritis. Small hiatal hernia. Appendix: No evidence of appendicitis. Intraperitoneal space: Unremarkable. No free air. No significant fluid collection. Vasculature: Unremarkable. No abdominal aortic aneurysm. Lymph nodes: Unremarkable. No enlarged lymph nodes. Urinary bladder: Unremarkable as visualized. Reproductive: Unremarkable as visualized. Bones/joints: Unremarkable. No acute fracture. Soft tissues: Unremarkable. CT/CT abdomen pelvis w con* [id number] IMPRESSION: 1. Prominent fluid in the stomach and small bowel, please correlate for a gastroenteritis. 2. Hepatic steatosis. 3. Right adrenal 27 mm indeterminate nodule along with a left adrenal 20 mm indeterminate nodule, dedicated nonemergent adrenal imaging could further characterize this. 4. Small hiatal hernia.
[2024-08-12 23:09] LABS: Bilirubin Urine Negative (Negative); Blood Urine Negative (Negative); Glucose Urine UA 3+ (Normal); Ketones Urine Negative (Negative); Leukocyte Esterase Urine Negative (Negative); Nitrate Urine Negative (Negative); Protein Urine Negative (Negative); Specific Gravity, Urine 1.023 (1.005-1.030); Urine Appearance Clear (CLEAR); Urine Color Yellow (Yellow); pH Urine 6.5 (5-7)
--- NOTE | 2024-08-12 23:10 | ECG_ITS ---
[facility] Test Date: 2024-08-12 Pat Name: Hollie Wahl Department: Room: Gender: Female Orderly: : 1975 Requested By: Mayank Max Order Number: [id number] Katherine MD: CAROLA GOINS Measurements Intervals [place] Rate: 95 P: 42 [place]: 168 QRS: -85 QRSD: 86 T: 53 QT: 364 QTc: 458 Interpretive Statements SINUS RHYTHM POSSIBLE LEFT ATRIAL ENLARGEMENT [-0.1mV P-WAVE IN V1/V2] PATTERN CONSISTENT WITH PULMONARY DISEASE POSSIBLE RIGHT VENTRICULAR CONDUCTION DELAY [RSR (QR) IN V1/V2] LEFT ANTERIOR FASCICULAR BLOCK [QRS AXIS <= -45, QR IN I, RS IN II] Compared to ECG 08/12/2024 21:14:56 Left anterior fascicular block now present Sinus tachycardia no longer present Right ventricular hypertrophy no longer present Electronically Signed On 08-14-2024 20:14:23 CDT by CAROLA GOINS [id number]
[2024-08-12 23:14] LABS: Bacteria Urine None Seen /hpf; Hyaline Casts Urine 0-4 /lpf; RBC Urine 0-2 /hpf (0-2); Squamous Epithelial Cell Urine 0-5 /hpf (0-5); WBC Urine 0-5 /hpf (0-5)
[2024-08-12] MEDS: iohexol 350 mg/mL 500 mL Btl (per mL) IV (23:16)
--- NOTE | 2024-08-12 23:25 | PC.NURSE ---
this nurse assumed pt care at 2320 from Mary [place] PUBLIC INTERVIEWER.
[2024-08-13 00:04] LABS: Lactic Acid level (Lactate) 1.7 mmol/L (0.5-2.2)
[2024-08-13 00:25] VITALS: BP 107/89; PULSE 105; RESP 16; O2SAT 95
== END 2024-08-13 00:28 | disposition home or self-care (01) ==
PROVIDERS: Emergency Medicine; Emergency Provider Emergency Medicine; PCP Family Medicine
DX: K52.9 Noninfective gastroenteritis and colitis, unspecified (principal); Z79.85 Long-term (current) use of injectable non-insulin antidiabetic drugs; Z79.84 Long term (current) use of oral hypoglycemic drugs; I10 Essential (primary) hypertension; E11.9 Type 2 diabetes mellitus without complications
CPT/HCPCS: 36415; 74177; 80053; 81001; 83605; 83690; 83735; 84484; 85025; 86140; 93005; 96360; 99285; J7030

== ENCOUNTER 2024-08-14 12:40 | Emergency (ER) | payer MEDICAID, SELFPAY ==
[2024-08-14 13:31] VITALS: BP 118/77; PULSE 115; RESP 16; TEMP 36.8; O2SAT 99; BMI 28.1
--- NOTE | 2024-08-14 13:43 | ED_ITS ---
HPI - Wound/Laceration 2 General: Chief Complaint: Wound/Laceration Stated Complaint: huge spot on bottom Time Seen by Provider: 08/14/24 13:42 Source: patient Mode of arrival: ambulatory Limitations: no limitations History of Present Illness: Patient is a 48-year-old female presents to ED today with a complaint of sores on her bottom that she noticed over the past 2 days. She states sores are extremely uncomfortable and describes them as burning. She has had no injury or trauma. Denies previous similar sores or rashes. Denies history of staph/MRSA. Onset (ago): day(s) Location: genitals (buttock) Place: home Patient tetanus UTD: Yes Associated symptoms: Reports no associated symptoms; Denies fever(s), nausea or vomiting Related Data Previous Rx's Medication Instructions Recorded lisinopril 20 mg tablet 20 mg PO DAILY #90 tabs 06/14/21 pregabalin 150 mg capsule (Lyrica) 150 mg PO BID #60 caps 06/14/21 blood sugar diagnostic (Advocate #50 ea 06/21/21 Test Strips) blood sugar diagnostic (OneTouch See Rx Instructions .Route 08/04/21 Verio test strips) .COMPLEX #100 ea metformin 1,000 mg tablet See Rx Instructions .Route 09/23/21 .COMPLEX #180 tabs empagliflozin 25 mg tablet See Rx Instructions .Route 11/12/21 (Jardiance) .COMPLEX #90 tabs semaglutide 0.25 mg or 0.5 mg (2 See Rx Instructions .Route 11/12/21 mg/1.5 mL) subcutaneous pen .COMPLEX #2 mL injector (Ozempic) hydrocodone 5 mg-acetaminophen 325 1 tab PO Q6H PRN pain 7 days #28 02/22/23 mg tablet tabs ondansetron HCl 4 mg tablet 4 mg PO Q8H PRN nausea and 08/13/24 vomiting #14 tabs hydrocodone 5 mg-acetaminophen 325 1 tab PO .q 4-6 PRN pain #20 tabs 08/14/24 mg tablet prednisone 10 mg tablet 10 mg PO DAILY #41 tabs 08/14/24 valacyclovir 1 gram tablet 1,000 mg PO TID 10 days #30 tabs 08/14/24 (Valtrex) Allergies Allergy/AdvReac Type Severity Reaction Status Date / Time aspirin Allergy Mild unknown Verified 08/12/24 20:05 penicillin V Allergy Mild unknown Verified 08/12/24 20:05 Review of Systems 2 Const: Denies: fever(s) Card: Denies: chest pain Resp: Denies: dyspnea GI: Denies: abdominal pain, nausea, vomiting or diarrhea : Denies: flank pain or dysuria Musc: Denies: neck pain, back pain, extremity pain, extremity swelling, joint pain or joint swelling Skin/Breast: Reports: rash Neuro: Denies: headache(s), numbness in extremities, weakness in extremities or sensory changes PFSH ED 2 PFSH: Medical History Tobacco abuse disorder HTN (hypertension) Type 2 diabetes mellitus without complication, with long-term current use of insulin Surgical History Hx of appendectomy Social History Smoking and tobacco/nicotine status: never used tobacco/nicotine Quit status (tobacco/nicotine): considering quitting Physical Exam 2 Const: COMMON NORMALS: no acute distress, average body habitus, patient oriented x3, no limitations, alert and well nourished GI: COMMON NORMALS: Normal to inspection, nondistended, normoactive bowel sounds present, Soft to palpation and non-tender PALPATION: Yes Soft to palpation : COMMON NORMALS: Yes no CVA tenderness BLADDER/KIDNEY EXAM: Yes no CVA tenderness Back/Pelvis: COMMON NORMALS: no CVA tenderness, thoracic and lumbar spine normal to inspection, no thoracic nor lumbar tenderness, thoraco-lumbar ROM normal and straight leg raise negative bilaterally BACK IMAGE (FEMALE): 1. patient has clusters of erythematous vesicular/scabbed lesions in a dermatomal pattern consistent with herpes zoster Extremity: GENERAL: Yes normal exam except as noted Neuro: COMMON NORMALS: patient oriented x3, moves all extremities, no focal motor deficits, no sensory deficits noted and gait normal S ENSORIUM/ORIENTATION: Yes alert Skin: RASHES: rashes noted Course 2 Vital Signs: Vital signs: Vital Signs Temperature 98.2 F 08/14/24 13:31 Pulse Rate 118 H 08/14/24 14:14 Respiratory Rate 18 08/14/24 14:14 Blood Pressure 117/73 08/14/24 14:14 Pulse Oximetry 99 08/14/24 14:14 Oxygen Delivery Me thod Room Air 08/14/24 13:31 MDM - Wound/Laceration Medical Decision Making Patient will be placed on antivirals, steroids, and given pain medication. Recommend she follow-up with primary care next week for reevaluation. Medical Records I reviewed the patient's medical records. Lab Data I reviewed the patient's lab results. No radiology studies performed this visit Discharge Plan Discharge Patient Disposition: Home Clinical Impression: Shingles Condition: Stable Prescriptions: New valacyclovir [Valtrex] 1 gram tablet 1,000 mg PO TID 10 Days Qty: 30 0RF prednisone 10 mg tablet 10 mg PO DAILY Qty: 41 0RF Rx Instructions: 6 tab on days 1-2, 5 tab on days 3-4, 4 tab on days 5-6, 3 tab on day 7-8, 2 tab on days 9-10, 1 tab on day 11 hydrocodone-acetaminophen 5-325 mg tablet 1 tab PO .q 4-6 PRN (Reason: pain) Qty: 20 0RF No Action hydrocodone-acetaminophen 5-325 mg tablet 1 tab PO Q6H PRN (Reason: pain) 7 Days Qty: 28 0RF lisinopril 20 mg tablet 20 mg PO DAILY Qty: 90 1RF pregabalin [Lyrica] 150 mg capsule 150 mg PO BID Qty: 60 2RF (DME) Advocate Test Strips Strip See Rx Instructions .Route Qty: 50 0RF Rx Instructions: TEST ONCE DAILY OneTouch Verio test strips Strip See Rx Instructions .ROUTE .COMPLEX Qty: 100 0RF Dose Instruction: USE 1 STRIP TO CHECK GLUCOSE ONCE DAILY Rx Instructions: USE 1 STRIP TO CHECK GLUCOSE ONCE DAILY metformin 1,000 mg tablet See Rx Instructions .ROUTE .COMPLEX Qty: 180 0RF Dose Instruction: Take 1 tablet by mouth twice daily for 90 days Rx Instructions: Take 1 tablet by mouth twice daily for 90 days Jardiance 25 mg tablet See Rx Instructions .ROUTE .COMPLEX Qty: 90 0RF Dose Instruction: TAKE 1 TABLET BY MOUTH EVERY MORNING Rx Instructions: TAKE 1 TABLET BY MOUTH EVERY MORNING Ozempic 0.25 mg or 0.5 mg(2 mg/1.5 mL) pen injector See Rx Instructions .ROUTE .COMPLEX Qty: 2 0RF Dose Instruction: INJECT 0.5 MG SUBCUTANEOUSLY ONCE A WEEK Rx Instructions: INJECT 0.5 MG SUBCUTANEOUSLY ONCE A WEEK ondansetron HCl 4 mg tablet 4 mg PO Q8H PRN (Reason: nausea and vomiting) Qty: 14 0RF Discharge Orders: Discharge ED (Routine); Ordered 08/14/24 Ordered By: Katiana Yepez Referrals: Andrew Loomis MD [Primary Care Provider] - Patient Instructions: Shingles (ED), Opioid Safety, Pain Management, Shingles Activity Restrictions/Additional Instructions: As we discussed, you need to follow-up with your primary care provider next week for reevaluation. Coding Level of Care Code ED Repacker for Keira Golden
[2024-08-14 14:14] VITALS: BP 117/73; PULSE 118; RESP 18; O2SAT 99
== END 2024-08-14 14:16 | disposition home or self-care (01) ==
PROVIDERS: Emergency Provider Physician Assistant; PCP Family Medicine
DX: B02.9 Zoster without complications (principal); Z79.85 Long-term (current) use of injectable non-insulin antidiabetic drugs; Z79.84 Long term (current) use of oral hypoglycemic drugs; I10 Essential (primary) hypertension; E11.9 Type 2 diabetes mellitus without complications
CPT/HCPCS: 99283

== ENCOUNTER 2024-09-26 13:52 | Outpatient (CLI) | payer MEDICARE, MEDICAID, SELFPAY ==
--- NOTE | 2024-09-26 | MM_ITS ---
WS: [id number] Bilateral screening 3D tomosynthesis digital mammogram, 09/26/2024 1:58 PM Clinical Data: ANNUAL SCREENING Comparison: 09/01/2020 Findings: No spiculated masses or clustered calcifications are seen. There are no secondary signs of carcinoma . MM/MM scr BI tomosynthesis [id number] Impression: Negative bilateral mammogram unchanged. Recommend annual screening mammograms. BIRADS: 1 - Negative. FOLLOW UP: 1 Year Follow-up DENSITY: There are scattered areas of fibroglandular density. The CAD felt checker was used
== END 2024-09-26 13:53 | disposition home or self-care (01) ==
LOC: RAD 13:54
PROVIDERS: PCP Family Medicine; Visit Provider Family Medicine
DX: Z12.31 Encounter for screening mammogram for malignant neoplasm of breast (principal)
CPT/HCPCS: 77063; 77067

== ENCOUNTER 2025-02-09 01:52 | Emergency (ER) | payer MEDICAID, MEDICARE, SELFPAY ==
[2025-02-09 02:02] VITALS: BP 174/104; PULSE 120; RESP 16; TEMP 35.8; O2SAT 99; BMI 28.1
[2025-02-09] MEDS: clindamycin 150 mg Capsule 300 MG PO (02:52)
[2025-02-09 02:53] VITALS: RESP 16; O2SAT 98
[2025-02-09] MEDS: oxyCODONE-APAP 5-325 mg Tablet 2 TAB PO (02:53)
--- NOTE | 2025-02-09 02:54 | ED_ITS ---
HPI - Dental/Oral General: Chief complaint: Dental/Oral Stated complaint: Bump inside mouth Jaw is swollen due to tooth Time Seen by Provider: 02/09/25 02:38 History of Present Illness: 49-year-old female presenting with left upper jaw pain. She says that she has had pain for the last couple of days. Swelling started yesterday. She is taken Tylenol and ibuprofen at home without relief. No fever. No vomiting. Related Data Previous Rx's ?Medication ?Instructions ?Recorded lisinopril 20 mg tablet 20 mg PO DAILY #90 tabs 07/27 pregabalin 150 mg capsule (Lyrica) 150 mg PO BID #60 c aps 06/14/21 blood sugar diagnostic (Advocate #50 ea 06/21/21 Test Strips) blood sugar diagnostic (OneTouch See Rx Instructions . Route 08/04/21 Verio test strips) .COMPLEX #100 ea metformin 1,000 mg tablet See Rx Instructions .Route 1 11/23/20 .COMPLEX #180 tabs empagliflozin 25 mg tablet See Rx Instructions .Route 11/12/21 (Jardiance) .COMPLEX #90 tabs semaglutide 0.25 mg or 0.5 mg (2 See Rx Instructions . Route 11/12/21 mg/1.5 mL) subcutaneous pen .COMPLEX #2 mL injector (Ozempic) hydrocodone 5 mg-acetaminophen 325 1 tab PO Q6H PRN pa in 7 days #28 02/22/23 mg tablet tabs ondansetron HCl 4 mg tablet 4 mg PO Q8H PRN nausea and 08/13/24 vomiting #14 tabs hydrocodone 5 mg-acetaminophen 325 1 tab PO .q 4-6 PRN pain #20 tabs 08/14/24 mg tablet prednisone 10 mg tablet 10 mg PO DAILY #41 tabs 07/30 clindamycin HCl 300 mg capsule 300 mg PO Q6H 10 days # 40 caps 02/09/25 ketorolac 10 mg tablet 10 mg PO TID PRN pain #10 ta bs 02/09/25 Allergies Allergy/AdvReac Type Severity Reaction Status Date / Time aspirin Allergy Mild unknown Verified 08/12/24 20:05 penicillin V Allergy Mild unknown Verified 08/12/24 20:05 [facility] ED PFSH: Medical History Tobacco abuse disorder HTN (hypertension) Type 2 diabetes mellitus without complication, with long-term current use of insulin Surgical History Hx of appendectomy Social History Smoking and tobacco/nicotine status: never used tobacco/nicotine Quit status (tobacco/nicotine): considering quitting Physical Exam Const: COMMON NORMALS: no acute distress GENERAL APPEARANCE: cooperative; not ill appearing HENMT: OTHER: Mouth exam reveals widespread dental decay. There is an abscess above the lateral incisor, and bicuspid on the left maxillary side. No drainage. Eye: COMMON NORMALS: Equal, round and reactive pupils present, EOMs intact bilaterally and conjunctivae normal CONJUNCTIVA: Yes conjunctivae normal PUPIL: Yes Equal, round and reactive pupils present Neck/C-Spine: COMMON NORMALS: full ROM OTHER: No submandibular swelling Chest: CHEST: Yes Symmetrical chest wall rise Resp: COMMON NORMALS: normal respiratory effort and No retractions Course Vital Signs: Vital signs: Vital Signs Temperature 96.4 F L 02/09/25 02:02 Pulse Rate 120 H 02/09/25 02:02 Respiratory Rate 16 02/09/25 02:53 Blood Pressure 174/104 02/09/25 02:02 Pulse Oximetry 98 02/09/25 02:53 MDM - Dental/Oral Medical Decision Making Dental abscess with gum swelling. Widespread dental decay. Abscess is palpable. Clindamycin. Toradol. No steroids, as the patient is diabetic. Dental follow-up. No radiology studies performed this visit Discharge Plan Discharge Patient Disposition: Home Clinical Impression: Dental abscess Condition: Stable Prescriptions: New ketorolac 10 mg tablet 10 mg PO TID PRN (Reason: pain) Qty: 10 0RF clindamycin HCl 300 mg capsule 300 mg PO Q6H 10 Days Qty: 40 0RF No Action hydrocodone-acetaminophen 5-325 mg tablet 1 tab PO Q6H PRN (Reason: pain) 7 Days Qty: 28 0RF lisinopril 20 mg tablet 20 mg PO DAILY Qty: 90 1RF pregabalin [Lyrica] 150 mg capsule 150 mg PO BID Qty: 60 2RF (DME) Advocate Test Strips Strip See Rx Instructions .Route Qty: 50 0RF Rx Instructions: TEST ONCE DAILY OneTouch Verio test strips Strip See Rx Instructions .ROUTE .COMPLEX Qty: 100 0RF Dose Instruction: USE 1 STRIP TO CHECK GLUCOSE ONCE DAILY Rx Instructions: USE 1 STRIP TO CHECK GLUCOSE ONCE DAILY metformin 1,000 mg tablet See Rx Instructions .ROUTE .COMPLEX Qty: 180 0RF Dose Instruction: Take 1 tablet by mouth twice daily for 90 days Rx Instructions: Take 1 tablet by mouth twice daily for 90 days Jardiance 25 mg tablet See Rx Instructions .ROUTE .COMPLEX Qty: 90 0RF Dose Instruction: TAKE 1 TABLET BY MOUTH EVERY MORNING Rx Instructions: TAKE 1 TABLET BY MOUTH EVERY MORNING Ozempic 0.25 mg or 0.5 mg(2 mg/1.5 mL) pen injector See Rx Instructions .ROUTE .COMPLEX Qty: 2 0RF Dose Instruction: INJECT 0.5 MG SUBCUTANEOUSLY ONCE A WEEK Rx Instructions: INJECT 0.5 MG SUBCUTANEOUSLY ONCE A WEEK prednisone 10 mg tablet 10 mg PO DAILY Qty: 41 0RF Rx Instructions: 6 tab on days 1-2, 5 tab on days 3-4, 4 tab on days 5-6, 3 tab on day 7-8, 2 tab on days 9-10, 1 tab on day 11 hydrocodone-acetaminophen 5-325 mg tablet 1 tab PO .q 4-6 PRN (Reason: pain) Qty: 20 0RF ondansetron HCl 4 mg tablet 4 mg PO Q8H PRN (Reason: nausea and vomiting) Qty: 14 0RF Discharge Orders: Discharge ED (Routine); Ordered 02/09/25 Ordered By: Too Villasenor Referrals: Andrew Loomis MD [Primary Care Provider] - 4-7 days Patient Instructions: Dental Abscess (ED), Opioid Safety, Pain Management Activity Restrictions/Additional Instructions: Call your dentist Monday morning for a follow-up appointment. Antibiotics as directed. Pain medication as needed. Print Language: Nauruan Coding Level of Care Code ED Analysis Manager for Keira Golden
[2025-02-09 02:57] VITALS: BP 125/82; PULSE 114; O2SAT 97
== END 2025-02-09 02:57 | disposition home or self-care (01) ==
PROVIDERS: Emergency Provider Emergency Medicine; PCP Family Medicine
DX: K04.7 Periapical abscess without sinus (principal); Z79.84 Long term (current) use of oral hypoglycemic drugs; E11.9 Type 2 diabetes mellitus without complications; I10 Essential (primary) hypertension
CPT/HCPCS: 99283; J9999

== ENCOUNTER 2025-02-28 00:04 | Emergency (ER) | payer MEDICARE, MEDICAID, SELFPAY ==
[2025-02-28] VITALS (8 sets, daily range): BP systolic 113–150; BP diastolic 69–87; PULSE 89–141; RESP 13–24; TEMP 36.7; O2SAT 94–99
--- NOTE | 2025-02-28 00:11 | ECG_ITS ---
[facility] Test Date: 2025-02-28 Pat Name: Hollie Wahl Department: Room: Gender: Female Escrow Clerk: : 1975 Requested By: Angelo Randolph Order Number: [id number] Murphy MD: Nikita Torres M.D. Measurements Intervals [place] Rate: 136 P: 50 NV: 158 QRS: 263 QRSD: 77 T: 56 QT: 294 QTc: 442 Interpretive Statements SINUS TACHYCARDIA PATTERN CONSISTENT WITH PULMONARY DISEASE Compared to ECG 08/12/2024 23:29:48 Sinus rhythm no longer present Left anterior fascicular block no longer present Electronically Signed On 02-28-2025 10:34:42 CDT by Nikita Torres M.D. [email or web address]
[2025-02-28 00:19] LABS: Glucose Point of Care 478 mg/dL (70-110)
[2025-02-28 00:42] LABS: Basophils % 0.3 %; Eosinophils # 0.1 10^3/uL (0.0-0.8); Eosinophils % 1.1 %; Hematocrit 40.9 % (36-47); Lymphocytes # 2.8 10^3/uL (0.8-4.8); Lymphocytes % 31.4 %; Mean Corpuscular HGB Conc 30.6 g/dL (30-55); Mean Corpuscular Hemoglobin 18.6 pg (27-33); Mean Corpuscular Volume 60.8 fl (85-98); Mean Platelet Volume 10.5 fL (7.4-10.4); Monocytes # 0.5 10^3/uL (0.2-0.9); Neutrophils % 60.8 %; Nucleated Red Blood Cells % 0.2 %; Platelet Count 336 10^3/cmm (157-399); Red Blood Count 6.73 10^6/uL (3.85-5.65); Red Cell Distribution Width 17.7 % (12.1-15.1); White Blood Count 8.89 10^3/uL (3.29-11.43)
[2025-02-28 00:45] LABS: Bilirubin Urine Negative (Negative); Blood Urine Negative (Negative); Glucose Urine UA 3+ (Normal); Ketones Urine Negative (Negative); Leukocyte Esterase Urine Negative (Negative); Nitrate Urine Positive (Negative); Protein Urine Negative (Negative); Urine Appearance Clear (CLEAR); Urine Color Yellow (Yellow); pH Urine 5.5 (5-7)
--- NOTE | 2025-02-28 00:45 | ED_ITS ---
HPI - Recheck/Abnormal Lab/Rx 2 General: Chief Complaint: Recheck/Abnormal Lab/Rx Stated Complaint: Blood sugar 511 Type 2 Time Seen by Provider: 02/28/25 00:29 Source: patient History of Present Illness: Patient is a 49-year-old female who presents to the ER for evaluation of hyperglycemia. Patient states she actually felt fine this evening up until the point that her checked her blood sugar and she noted that her blood sugar was over 500. She states at that point she noticed some dizziness and blurred vision and felt unwell. She states that she had only checked her blood sugar because her had come home with a glucometer and blood pressure machine. They noted that her heart rate was around 130 to 140 bpm in addition to her hyperglycemia and her blood sugar has never been that high. She does acknowledge that she has not taken any of her medications at all in the last couple of months because she did not feel like any of her medications were working. She states her blood sugars normally around 200-300. She was previously on insulin whenever she lived in [place] however states they had taken her off of that medication there. She denies any fevers or chills or any recent illness. No nausea or vomiting. No headaches. Related Data Previous Rx's ?Medication ?Instructions ?Recorded lisinopril 20 mg tablet 20 mg PO DAILY #90 tabs 07/27 pregabalin 150 mg capsule (Lyrica) 150 mg PO BID #60 c aps 06/14/21 blood sugar diagnostic (Advocate #50 ea 06/21/21 Test Strips) blood sugar diagnostic (OneTouch See Rx Instructions . Route 08/04/21 Verio test strips) .COMPLEX #100 ea metformin 1,000 mg tablet See Rx Instructions .Route 1 11/23/20 .COMPLEX #180 tabs empagliflozin 25 mg tablet See Rx Instructions .Route 11/12/21 (Jardiance) .COMPLEX #90 tabs semaglutide 0.25 mg or 0.5 mg (2 See Rx Instructions . Route 11/12/21 mg/1.5 mL) subcutaneous pen .COMPLEX #2 mL injector (Ozempic) hydrocodone 5 mg-acetaminophen 325 1 tab PO Q6H PRN pa in 7 days #28 02/22/23 mg tablet tabs ondansetron HCl 4 mg tablet 4 mg PO Q8H PRN nausea and 08/13/24 vomiting #14 tabs hydrocodone 5 mg-acetaminophen 325 1 tab PO .q 4-6 PRN pain #20 tabs 08/14/24 mg tablet prednisone 10 mg tablet 10 mg PO DAILY #41 tabs 07/30 ketorolac 10 mg tablet 10 mg PO TID PRN pain #10 ta bs 02/09/25 Allergies Allergy/AdvReac Type Severity Reaction Status Date / Time aspirin Allergy Mild unknown Verified 02/28/25 00:31 penicillin V Allergy Mild unknown Verified 02/28/25 00:31 Review of Systems 2 Const: Reports: fatigue and malaise Eyes: Reports: blurry vision Card: Denies: chest pain or palpitations Resp: Denies: dyspnea GI: Denies: abdominal pain, nausea or vomiting Skin/Breast: Denies: rash PFSH ED 2 PFSH: Medical History Tobacco abuse disorder HTN (hypertension) Type 2 diabetes mellitus without complication, with long-term current use of insulin Surgical History Hx of appendectomy Social History Smoking and tobacco/nicotine status: never used tobacco/nicotine Quit status (tobacco/nicotine): considering quitting Physical Exam 2 Const: COMMON NORMALS: no acute distress, average body habitus, alert and well nourished GENERAL APPEARANCE: cooperative ORIENTATION/CONSCIOUSNESS: Yes awake HENMT: COMMON NORMALS: normocephalic and atraumatic HEAD & SCALP: n ormocephalic and atraumatic Eye: COMMON NORMALS: conjunctivae normal CONJUNCTIVA: Yes conjunctivae normal Neck/C-Spine: GENERAL: Yes normal visual inspection Resp: COMMON NORMALS: normal respiratory effort, No retractions and No use of accessory muscles Cardio: COMMON NORMALS: regular rhythm and Peripheral pulses 2+ throughout RHYTHM: regular rhythm PERIPHERAL PULSES: Peripheral pulses 2+ throughout GI: COMMON NORMALS: Soft to palpation and non-tender PALPATION: Yes Soft to palpation Extremity: COMMON NORMALS: full ROM and no pedal edema Neuro: COMMON NORMALS: no focal motor deficits SENSORIUM/ORIENTATION: Yes alert Skin: COMMON NORMALS: no rashes or lesions noted GENERAL SKIN EXAM: no rashes or lesions noted Course 2 Vital Signs: Vital signs: Vital Signs Temperature 98.1 F 02/28/25 00:06 Pulse Rate 97 02/28/25 03:16 Respiratory Rate 18 02/28/25 03:16 Blood Pressure 117/69 02/28/25 02:16 Pulse Oximetry 94 02/28/25 03:16 Oxygen Delivery Me thod Room Air 02/28/25 03:16 MDM - Recheck/Abnormal Lab/Rx Medical Decision Making Patient is a nontoxic 49-year-old female who presents to the ER for evaluation of hyperglycemia. Patient was hyperglycemic upon arrival here and was given 2 L of normal saline and 10 units of IV insulin. Basic labs were checked and she is not in DKA. CBC is unremarkable. Patient reports feeling much better on reassessment and is eager for discharge. I have encouraged her to continue her previously prescribed medications and that she will need to follow-up with her primary care provider to discuss further management of her diabetes and will likely need insulin treatment. She expresses understanding and was provided return precautions. Lab Data I reviewed the patient's lab results. 02/28/25 00:29 02/28/25 00:29 Laboratory Results WBC 8.89 10^3/uL (3.29-11.43) 02/28/25 00: RBC 6.73 10^6/uL (3.85-5.65) H 02/28/25 00:29 Hgb 12.50 g/dL (11.27-16.99) 02/28/25 00: Hct 40.9 % (36-47) 02/28/25 00: MCV 60.8 fl (85-98) L 02/28/25 00: MCH 18.6 pg (27-33) L 02/28/25 00: MCHC 30.6 g/dL (30-55) 02/28/25 00: RDW 17.7 % (12.1-15.1) H 02/28/25 00:29 Plt Count 336 10^3/cmm (157-399) 02/28/25 00: MPV 10.5 fL (7.4-10.4) H 02/28/25 00: Neut % (Auto) 60.8 % 02/28/25 00: Lymph % (Auto) 31.4 % 02/28/25 00: [place] % (Auto) 6.0 % 02/28/25 00: Eos % (Auto) 1.1 % 02/28/25 00: Baso % (Auto) 0.3 % 02/28/25 00: Neut # (Auto) 5.40 10^3/uL (1.8-7.7) 02/28/25 00: Lymph # (Auto) 2.8 10^3/uL (0.8-4.8) 02/28/25 00: [place] # (Auto) 0.5 10^3/uL (0.2-0.9) 02/28/25 00: Eos # (Auto) 0.1 10^3/uL (0.0-0.8) 02/28/25 00: Baso # (Auto) 0.0 10^3/uL (0.0-0.1) 02/28/25 00: Nucleated RBC % (auto) 0.2 % 02/28/25 00: Nucleated RBCs # 0.0 /100WBC 02/28/25 00: Specimen Type Venous 02/28/25 00:55 Santino Test N/a 02/28/25 00:55 VBG pH 7.44 (7.32-7.42) H 02/28/25 00:55 VBG pCO2 35.8 mmHg (41-51) L 02/28/25 00:55 VBG pO2 52.4 mmHg (25-40) H 02/28/25 00:55 VBG HCO3 24.0 mmol/L (24-28) 02/28/25 00: VBG Base Excess 0.1 mmol/L (-3.0-3.0) 02/28/25 00: VBG Hematocrit 39.2 % (37-47) 02/28/25 00: Portfolio Lead ID [email or web address] 02/28/25 00: Sodium 133 mmol/L (136-145) L 02/28/25 00: Potassium 4.4 mmol/L (3.5-5.1) 02/28/25 00: Chloride 97 mmol/L (98-107) L 02/28/25: Carbon Dioxide 21 mmol/L (22-29) L 02/28/25 00:29 Anion Gap 19.3 (5-19) H 02/28/25 00: BUN 18 mg/dL (6-20) 02/28/25 00: Creatinine 0.8 mg/dL (0.5-0.9) 02/28/25 00: GFR Calculation 75.6 mL/min (90-130) L 02/28/25: Glucose 446 mg/dL (65-115) H 02/28/25: POC Glucose 204 mg/dL (70-110) H 02/28/25 02:54 Calculated Osmolality 297 mOsm/kg (285-295) H 02/28/25: Calcium 9.9 mg/dL (8.5-10.5) 02/28/25 Magnesium 1.8 mg/dL (1.7-2.3) 02/28/25 Total Bilirubin 0.4 mg/dL (0.15-1.2) 02/28/25 AST 22 U/L (0-32) 02/28/25 ALT 36 U/L (0-33) H 02/28/25: Alkaline Phosphatase 138 U/L (35-105) H 02/28/25 00: Total Protein 7.5 g/dL (6.6-8.7) 02/28/25 Albumin 4.1 g/dL (3.5-5.2) 02/28/25 Globulin 3.3 g/dL (1.3-4.6) 02/28/25 00: Urine Color Yellow (Yellow) 02/28/25 Urine Appearance Clear (CLEAR) 02/28/25 Urine pH 5.5 (5-7) 02/28/25 Ur Specific [place] 1.040 (1.005-1.030) H 02/28/25 Urine Protein Negative (Negative) 02/28/25 Urine Glucose (UA) 3+ (Normal) H 02/28/25 Urine Ketones Negative (Negative) 02/28/25 Urine Blood Negative (Negative) 02/28/25 Urine Nitrate Positive (Negative) A 02/28/25 Urine Bilirubin Negative (Negative) 04/25/25 00:27 Urine Urobilinogen 1.0 mg/dL (Negative) 02/28/25 00:27 Ur Leukocyte Esterase Negative (Negative) 02/28/25 00:27 Urine RBC 0-2 /hpf (0-2) 02/28/25 00:27 Urine WBC 0-5 /hpf (0-5) 02/28/25 00:27 Ur Squamous Epith Cells 0-5 /hpf (0-5) 02/28/25 00:27 Amorphous Sediment Not Reportable 02/28/25 00:27 Urine Bacteria 4+ /hpf (NONE) H 02/28/25 00:27 Hyaline Casts 0.40 /lpf 02/28/25 00:27 Serum Ketones Negative (Negative) 02/28/25 00:29 No radiology studies performed this visit EKG Data EKG 1: EKG interpretation date: 02/28/25 EKG interpretation time: 00:25 Interpretation: Sinus tachycardia with a heart rate of [address] elevation. QTc of 373 ms. Discharge Plan Discharge Patient Disposition: Home Clinical Impression: Acute hyperglycemia, Tachycardia Condition: Stable Prescriptions: No Action hydrocodone-acetaminophen 5-325 mg tablet 1 tab PO Q6H PRN (Reason: pain) 7 Days Qty: 28 0RF lisinopril 20 mg tablet 20 mg PO DAILY Qty: 90 1RF pregabalin [Lyrica] 150 mg capsule 150 mg PO BID Qty: 60 2RF (DME) Advocate Test Strips Strip See Rx Instructions .Route Qty: 50 0RF Rx Instructions: TEST ONCE DAILY OneTouch Verio test strips Strip See Rx Instructions .ROUTE .COMPLEX Qty: 100 0RF Dose Instruction: USE 1 STRIP TO CHECK GLUCOSE ONCE DAILY Rx Instructions: USE 1 STRIP TO CHECK GLUCOSE ONCE DAILY metformin 1,000 mg tablet See Rx Instructions .ROUTE .COMPLEX Qty: 180 0RF Dose Instruction: Take 1 tablet by mouth twice daily for 90 days Rx Instructions: Take 1 tablet by mouth twice daily for 90 days Jardiance 25 mg tablet See Rx Instructions .ROUTE .COMPLEX Qty: 90 0RF Dose Instruction: TAKE 1 TABLET BY MOUTH EVERY MORNING Rx Instructions: TAKE 1 TABLET BY MOUTH EVERY MORNING Ozempic 0.25 mg or 0.5 mg(2 mg/1.5 mL) pen injector See Rx Instructions .ROUTE .COMPLEX Qty: 2 0RF Dose Instruction: INJECT 0.5 MG SUBCUTANEOUSLY ONCE A WEEK Rx Instructions: INJECT 0.5 MG SUBCUTANEOUSLY ONCE A WEEK prednisone 10 mg tablet 10 mg PO DAILY Qty: 41 0RF Rx Instructions: 6 tab on days 1-2, 5 tab on days 3-4, 4 tab on days 5-6, 3 tab on day 7-8, 2 tab on days 9-10, 1 tab on day 11 hydrocodone-acetaminophen 5-325 mg tablet 1 tab PO .q 4-6 PRN (Reason: pain) Qty: 20 0RF ketorolac 10 mg tablet 10 mg PO TID PRN (Reason: pain) Qty: 10 0RF ondansetron HCl 4 mg tablet 4 mg PO Q8H PRN (Reason: nausea and vomiting) Qty: 14 0RF Discharge Orders: Discharge ED (Routine); Ordered 02/28/25 Ordered By: Angelo Randolph Referrals: Andrew Loomis MD [Primary Care Provider] - Discharge Diet: Diabetic Discharge Activity: Increase activity as tolerated Patient Instructions: Diabetic Hyperglycemia (ED), Opioid Safety, Pain Management Activity Restrictions/Additional Instructions: It is important you take the medications that you are prescribed by your doctor. Follow-up with your primary care provider for further management of your diabetes. Return to the ER for any new or worsening symptoms or any other concerns. Print Language: Divehi Coding Level of Care Code ED Fish Fryer for Keira Golden
[2025-02-28 00:50] LABS: Add Urine Microscopic? YES; Bacteria Urine 4+ /hpf; RBC Urine 0-2 /hpf (0-2); Squamous Epithelial Cell Urine 0-5 /hpf (0-5); WBC Urine 0-5 /hpf (0-5)
[2025-02-28 00:57] LABS: Albumin Level 4.1 g/dL (3.5-5.2); Potassium 4.4 mmol/L (3.5-5.1)
[2025-02-28 01:02] LABS: Ketone (Acetest) Serum Negative (Negative)
[2025-02-28] MEDS: sodium chloride 0.9% 1,000 ML 999 ML IV ×2 (01:03→01:30)
[2025-02-28 01:08] LABS: Alanine Aminotransferase 36 U/L (0-33); Alkaline Phosphatase 138 U/L (35-105); Anion Gap 19.3 (5-19); Aspartate Amino Transferase 22 U/L (0-32); Blood Urea Nitrogen 18 mg/dL (6-20); Calcium 9.9 mg/dL (8.5-10.5); Carbon Dioxide 21 mmol/L (22-29); Chloride 97 mmol/L (98-107); Creatinine Clr Calc Pharmacy 82.1848; Globulin 3.3 g/dL (1.3-4.6); Glomerular Filtration Rate 75.6 mL/min (90-130); Glucose 446 mg/dL (65-115); Magnesium 1.8 mg/dL (1.7-2.3); Osmolality Calculated 297 mOsm/kg (285-295); Sodium 133 mmol/L (136-145); Total Bilirubin 0.4 mg/dL (0.15-1.2); Total Protein 7.5 g/dL (6.6-8.7)
[2025-02-28 01:11] LABS: Add Urine Culture? No
[2025-02-28 01:13] LABS: Base Excess VBG 0.1 mmol/L (-3.0-3.0); Blood Gas Sample Type Venous; PCO2 VBG 35.8 mmHg (41-51); PO2 VBG 52.4 mmHg (25-40); Venous Blood Gas Hematocrit 39.2 % (37-47); pH VBG 7.44 (7.32-7.42)
[2025-02-28 01:22] LABS: Slide Review Slide Review Perform
[2025-02-28] MEDS: insulin regular-human 100 units/1 mL 10 UNIT IVP (01:30)
[2025-02-28] MEDS: cefTRIAXone 1,000 mg SDV 1000 MG IVP (02:54)
[2025-02-28 03:02] LABS: Glucose Point of Care 204 mg/dL (70-110)
== END 2025-02-28 03:34 | disposition home or self-care (01) ==
PROVIDERS: Emergency Provider Student in an Organized Health Care Education/Training Program; PCP Family Medicine
DX: E11.65 Type 2 diabetes mellitus with hyperglycemia (principal); I10 Essential (primary) hypertension; R00.0 Tachycardia, unspecified; Z79.84 Long term (current) use of oral hypoglycemic drugs
CPT/HCPCS: 36416; 80053; 81001; 82009; 82803; 82962; 83735; 85025; 93005; 96361; 96374; 96375; 99284; J0696; J1815; J7030

== ENCOUNTER → 2025-06-19 14:34 | Outpatient (BNVA) | payer MEDICARE, MEDICAID, SELFPAY | PROVIDERS: PCP Registered Nurse; Visit Provider Registered Nurse | DX: E11.9 Type 2 diabetes mellitus without complications (principal); Z79.4 Long term (current) use of insulin | CPT/HCPCS: 80048; 80053; 80061; 81000; 82607; 83036; 85025 ==

== ENCOUNTER → 2025-10-20 14:40 | Outpatient (BNVA) | payer MEDICARE, MEDICAID, SELFPAY | PROVIDERS: PCP Registered Nurse; Visit Provider Registered Nurse | DX: Z01.419 Encounter for gynecological examination (general) (routine) without abnormal findings (principal); N89.8 Other specified noninflammatory disorders of vagina | CPT/HCPCS: 81000; 87070; 87205; 87491; 87591; 87624; 87661 ==

== ENCOUNTER → 2025-10-21 10:04 | Outpatient (BNVA) | payer MEDICARE, MEDICAID, SELFPAY | PROVIDERS: PCP Registered Nurse; Visit Provider Registered Nurse | DX: N39.0 Urinary tract infection, site not specified (principal) | CPT/HCPCS: 87086 ==